=== PATIENT | male | born 1995 | race Two or more races ===

== ENCOUNTER 2022-11-08 23:41 | Inpatient (IN) | payer BC, SELFPAY ==
[2022-11-09] MEDS: haloperidol inj 5 mg/mL INJ 1 mL IM (00:07)
[2022-11-09 00:09] LABS: Basophils # 0.1 10^3/uL (0.0-0.1); Basophils % 0.6 %; Eosinophils % 0.2 %; Hematocrit 46.2 % (42.0-52.0); Hemoglobin 15.9 g/dL (11.7-16.6); Lymphocytes # 3.2 10^3/uL (0.8-4.8); Lymphocytes % 36.1 %; Mean Corpuscular HGB Conc 34.4 g/dL (30.0-36.0); Mean Corpuscular Hemoglobin 30.3 pg (28.0-34.0); Mean Platelet Volume 9.5 fL (7.4-10.4); Monocytes # 0.7 10^3/uL (0.2-0.9); Monocytes % 8.4 %; Neutrophils # 4.78 10^3/uL (1.8-7.7); Neutrophils % 54.4 %; Nucleated Red Blood Cells % 0 %; Platelet Count 265 10^3/cmm (130-400); Red Blood Count 5.25 10^6/uL (4.1-5.3); White Blood Count 8.8 10^3/uL (4.0-10.0)
[2022-11-09] MEDS: LORazepam 2 mg/mL INJ 1 mL IM (00:10)
[2022-11-09 00:12] LABS: Amphetamines Screen Urine Negative (Negative); Barbiturates Screen Urine Negative (Negative); Benzodiazepines Screen Urine Negative (Negative); Cocaine Screen Urine Negative (Negative); Opiate Screen Urine Negative (Negative); PCP Screen Urine Negative (Negative); THC Screen Urine Negative (Negative)
--- NOTE | 2022-11-09 00:19 | W.ED.PSYCHS ---
HPI - Psych General: Stated Complaint: SI Time Seen by Provider: 11/08/22 23:43 Source: patient Mode of arrival: ambulatory Limitations: no limitations History of Present Illness: 26-year-old male who states that he has lost everything recently has been under a lot of stress and just feeling worthless he has been having active suicidal thoughts he states he has a plan but he will not tell me. When he first got out of the room he is trying to show his finger in the electric sockets he states he went electrocute himself. He has been drinking alcohol tonight former drug user but states he is clean currently denies any worsening proving factors. Associated symptoms: Reports depression and suicidal ideation Review of Systems Const: Denies: fever(s), chills, body aches or change in appetite ENMT: Denies: throat pain or dental pain Card: Denies: chest pain Resp: Denies: dyspnea GI: Denies: abdominal pain, nausea, vomiting or diarrhea Musc: Denies: neck pain or back pain Skin/Breast: Denies: rash Neuro: Denies: headache(s) Psych: Reports: depression and suicidal ideation [facility] ED PFSH: Social History (Updated 11/09/22 @ 00:31 by Boubacar Resendiz MD) Alcohol intake: current Substance/Drug Use: former Physical Exam Const: COMMON NORMALS: no acute distress and patient oriented x3 HENMT: COMMON NORMALS: normocephalic and atraumatic HEAD & SCALP: normocephalic and atraumatic Eye: COMMON NORMALS: conjunctivae normal CONJUNCTIVA: Yes conjunctivae normal Neck/C-Spine: COMMON NORMALS: supple Chest: COMMONS NORMALS: normal inspection of the chest and normal palpation of entire chest wall Resp: COMMON NORMALS: normal respiratory effort, No retractions, No use of accessory muscles and clear to auscultation bilaterally AUSCULTATION: clear to auscultation bilaterally Cardio: COMMON NORMALS: regular rate, regular rhythm and No murmurs present (Cardio) RATE: regular rate RHYTHM: regular rhythm GI: COMMON NORMALS: Normal to inspection, nondistended, normoactive bowel sounds present, Soft to palpation, non-tender and no masses PALPATION: Yes Soft to palpation Extremity: COMMON NORMALS: normal to inspection and full ROM Neuro: COMMON NORMALS: patient oriented x3, moves all extremities and no focal motor deficits Psych: COMMON NORMALS: mental status grossly normal and cooperative THOUGHT CONTENT: Yes Suicidality present Skin: COMMON NORMALS: no rashes or lesions noted and no wounds GENERAL SKIN EXAM: no rashes or lesions noted MDM - Psych Medical Decision Making Patient presents for suicidal ideation he is medically cleared he is placed under a 96-hour hold I did speak to Dr. Hillman will admit. Medical Records I reviewed the patient's medical records. Lab Data I reviewed the patient's lab results. 11/09/22 00:04 11/09/22 00:04 Laboratory Results WBC 8.8 10^3/uL (4.0-10.0) 11/09/22 00:04 RBC 5.25 10^6/uL (4.1-5.3) 11/09/22 00:04 Hgb 15.9 g/dL (11.7-16.6) 11/09/22 00:04 Hct 46.2 % (42.0-52.0) 11/09/22 00:04 MCV 88.0 fl (80-94) 11/09/22 00:04 MCH 30.3 pg (28.0-34.0) 11/09/22 00:04 MCHC 34.4 g/dL (30.0-36.0) 11/09/22 00:04 RDW 12.0 % (12.1-15.1) L 11/09/22 00:04 Plt Count 265 10^3/cmm (130-400) 11/09/22 00:04 MPV 9.5 fL (7.4-10.4) 11/09/22 00:04 Neut % (Auto) 54.4 % 11/09/22 00:04 Lymph % (Auto) 36.1 % 11/09/22 00:04 [place] % (Auto) 8.4 % 11/09/22 00:04 Eos % (Auto) 0.2 % 11/09/22 00:04 Baso % (Auto) 0.6 % 11/09/22 00:04 Neut # (Auto) 4.78 10^3/uL (1.8-7.7) 11/09/22 00:04 Lymph # (Auto) 3.2 10^3/uL (0.8-4.8) 11/09/22 00:04 [place] # (Auto) 0.7 10^3/uL (0.2-0.9) 11/09/22 00:04 Eos # (Auto) 0.0 10^3/uL (0.0-0.8) 11/09/22 00:04 Baso # (Auto) 0.1 10^3/uL (0.0-0.1) 11/09/22 00:04 Nucleated RBC % (auto) 0 % 11/09/22 00:04 Nucleated RBCs # 0.0 /100WBC 11/09/22 00:04 Sodium 137 mmol/L (136-145) 11/09/22 00:04 Chloride 101 mmol/L (98-107) 11/09/22 00:04 BUN 8 mg/dL (6-20) 11/09/22 00:04 Glucose 88 mg/dL (65-115) 11/09/22 00:04 Calcium 9.2 mg/dL (8.5-10.5) 11/09/22 00:04 Total Bilirubin 0.9 mg/dL (0.15-1.2) 11/09/22 00:04 AST 26 U/L (0-40) 11/09/22 00:04 ALT 20 U/L (0-41) 11/09/22 00:04 Alkaline Phosphatase 72 U/L (40-130) 11/09/22 00:04 Total Protein 7.4 g/dL (6.6-8.7) 11/09/22 00:04 Albumin 4.9 g/dL (3.5-5.2) 11/09/22 00:04 Globulin 2.5 g/dL (1.3-4.6) 11/09/22 00:04 Urine Opiates Screen Negative ng/mL (Negative) 11/08/22 23:54 Ur Barbiturates Screen Negative ng/mL (Negative) 11/08/22 23:54 Ur Phencyclidine Scrn Negative ng/mL (Negative) 11/08/22 23:54 Ur Amphetamines Screen Negative ng/mL (Negative) 11/08/22 23:54 U Benzodiazepines Scrn Negative ng/mL (Negative) 11/08/22 23:54 Urine Cocaine Screen Negative ng/mL (Negative) 11/08/22 23:54 U Marijuana (THC) Screen Negative ng/mL (Negative) 11/08/22 23:54 Discharge Plan Discharge Admit Provider: Bj Hillman Condition: Stable Coding Level of Care Code ED Research And Evaluation Analyst for Radha Arora
[2022-11-09 00:28] LABS: Alanine Aminotransferase 20 U/L (0-41); Albumin Level 4.9 g/dL (3.5-5.2); Alcohol Level 213 mg/dL (0-10); Alkaline Phosphatase 72 U/L (40-130); Anion Gap 21.2 (5-19); Aspartate Amino Transferase 26 U/L (0-40); Blood Urea Nitrogen 8 mg/dL (6-20); Calcium 9.2 mg/dL (8.5-10.5); Carbon Dioxide 18 mmol/L (22-29); Chloride 101 mmol/L (98-107); Globulin 2.5 g/dL (1.3-4.6); Glomerular Filtration Rate 160.4 mL/min (90-130); Glucose 88 mg/dL (65-115); Osmolality Calculated 282 mOsm/kg (285-295); Potassium 3.2 mmol/L (3.5-5.1); Sodium 137 mmol/L (136-145); Total Bilirubin 0.9 mg/dL (0.15-1.2); Total Protein 7.4 g/dL (6.6-8.7)
[2022-11-09 00:34] LABS: Acetaminophen < 5.0 ug/mL (10-30); Salicylate < 0.3 mg/dL (3-10)
[2022-11-09 01:18] VITALS: BP 91/62; PULSE 73; RESP 14; O2SAT 95
--- NOTE | 2022-11-09 02:46 | PC.NURSE ---
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 Pt presents slumped over in w/c, and had to be physically transferred to the bed d/t receiving Haldol and Ativan in the ER, prior to being transferred to the NPU for care. Assessment to be completed when pt is awake enough to answer questions and hold himself upright. Pt is currently resting quielty in bed, respirations even and nonlabored.
[2022-11-09 05:57] VITALS: RESP 16
--- NOTE | 2022-11-09 08:10 | P.NPUHP_ITS ---
Providers/Chief Complaint Admitting Physician: Bj Hillman MD Chief Complaint: SI HPI NPU History of Present Illness Sal Rose is a 26 year old male who presented to the emergency department with the following report: Stated Complaint: SI Time Seen by Provider: 11/08/22 23:43 Source: patient Mode of arrival: ambulatory Limitations: no limitations History of Present Illness: 26-year-old male who states that he has lost everything recently has been under a lot of stress and just feeling worthless he has been having active suicidal thoughts he states he has a plan but he will not tell me. When he first got out of the room he is trying to show his finger in the electric sockets he states he went electrocute himself. He has been drinking alcohol tonight former drug user but states he is clean currently denies any worsening proving factors. Associated symptoms: Reports depression and suicidal ideation. He was admitted to the neuropsychiatric unit for definitive treatment of those issues. The patient presents today reporting that he has no previous psychiatric hospitalizations. He endorses some outpatient psychiatric services, and he reports earlier this month he had inpatient detox/substance abuse treatment. He reports some anti-anxiety medications. He reports that he was living with his girlfriend but was moving out, and his brother picked him up and they were going down the road and noticed a cooler that was all taped up, and they got out to move it off the road and noticed a stench and opened it and there was a body smell and bones, and his brother and girlfriend contacted the police. Afterwards, he got brought here because he was still really out of sorts. He is on a 96-hour hold, which extends to November 17, and he expressed concerns because he has a job that is starting Thursday. We discussed that he could be here for the 96 hours but could possibly be discharged earlier depending on how things go, but that he would at least be here for a day. He endorses that this situation was upsetting but there was also alcohol involved. He reports that he completed the thirty-day program he was in recently and it went well, and he had 55 days of sobriety. He reports that last night was the first time he drank again since treatment, after this incident, and it impacted him more because he felt upset about messing up his sobriety. The patient denies cigarette use or vaping. He reports that he started drinking alcohol too much around 14 to 16 years old. He reports that he was in the and had some periods of sobriety then. He endorses some cannabis use, at least once a week. He reports some experimentation with cocaine and methamphetamine the beginning of 2019. He denies other illicit drug use. He reports two drug rehabilitation programs, this recent one and one in 2017. He endorses one DUI, before he went into treatment recently. He denies any other drug related charges. He reports that growing up his mother had mental health issues and he had to figure things out for himself, and it was challenging. He reports some sleep issues. He reports some suicidal thoughts and passive wish. He denies self-injurious behavior. He endorses that he has had some anxiety, with sweaty palms and shortness of breath, and worrying. He endorses paranoia. He denies auditory or visual hallucinations. He reports some nightmares and flashbacks from seeing people that have committed suicide. PSYCHIATRIC HISTORY: As above. SUBSTANCE ABUSE HISTORY: As above. FAMILY HISTORY: The patient reports mental health issues on his mother?s side of the family. He reports addiction issues on both sides of the family. He endorses a suicide completion of a cousin on his mother?s side. DEVELOPMENTAL HISTORY: The patient reports that his mother said he was born not crying. He learned to walk and talk and met developmental milestones on time. The patient endorses speech therapy and learning support. PSYCHOSOCIAL HISTORY: The patient reports that his mother and father were together when he was born and split up later. He reports that he has two younger brothers from that union. He denies any other siblings. He describes his childhood as good at first and then he had to grow up fast. He denies emotional, physical, or sexual abuse, but there was neglect. He endorses some CYS involvement. 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 He endorses graduating from high school. He denies additional training. He endorses being heterosexual, with the longest relationship being his current relationship of about two years. He denies being and has no children. 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 The longest job he had was in the . 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 He currently lives at his mother?s apartment. LEGAL HISTORY: He had one night in correction. MEDICAL HISTORY: He reports having high blood pressure. Meds NPU Allergies Allergy/AdvReac Type Severity Reaction Status Date / Time No Known Allergies Allergy Verified 11/09/22 09:21 PFSH NPU PFSH: Social History (Updated 11/09/22 @ 00:31 by Boubacar Resendiz MD) Alcohol intake: current Substance/Drug Use: former Mental Status Exam MSE Comments: This is a slender dark skined male, in hospital scrubs, with adequate grooming and eye contact. No abnormal movements mild psychomotor retardation. Cooperative with exam in mild distress. Speech was normal rate and slightly decreased volume. Mood described as very calm now; affect congruent. Thought process, organized. Thought content: patient denied any suicidal or homicidal ideation, there were no delusions reported or noted, patient denied any auditory or visual hallucinations. Attention, concentration, and memory appeared intact, but none were formally tested. Alert and oriented times three. Insight and judgment are fair. Impulse control is limited. Vitals/I&O/Wt Last Vital Signs Pulse 73 11/09/22 01:18 Resp 16 11/09/22 05:57 BP 91/62 11/09/22 01:18 Pulse Ox 95 11/09/22 01:18 O2 Del Method Room Air 11/09/22 01:18 Data NPU 11/09/22 00:04 11/09/22 00:04 A&P Assessment and plan (1) Alcohol use disorder, severe, dependence: (2) Partner relational problem: (3) History of trauma: (4) Depression: Plan This is a 26-year-old dark skinned male, who presents on a 96-hour hold, after a recent rehabilitation program and period of sobriety, having had a relapse secondary to the stress of moving and an upsetting incident, with genetic loading for mental health and addiction issues, and a history of instability at home. 1. Continue current medication. 2. Encourage individual, group, and milieu therapy. 3. Continue q-15-minute checks for safety. 4. Get some collateral information. Involuntary Hold Information 96 Hour Hold: 96 Hour Involuntary Admission: Yes 96 Hour Hold Ending Date: 11/17/22 96 Hour Hold Ending Time: 23:46 Attestations NPU Medical Necessity Statement*: Inpatient hospitalization is medically necessary and the clinically appropriate intervention, at this time. We will monitor medications and make changes as indicated. Patient will be in the hospital for over two midnights. Likely length of stay is three to five days. Coding Level of Care Code Acute Code for Chg Fwd Diagnoses Alcohol use disorder, severe, dependence F10.20 Partner relational problem Z63.0 History of trauma Z87.828 Depression F32.A
[2022-11-09 14:00] VITALS: BP 103/65; PULSE 101; RESP 20; TEMP 36.8; O2SAT 98
[2022-11-09 20:13] VITALS: BP 104/66; PULSE 70; RESP 18; TEMP 36.6; O2SAT 98
[2022-11-10] MEDS: folic acid 1 mg Tablet PO (08:37)
[2022-11-10] MEDS: thiamine 100 mg Tablet PO (08:37)
[2022-11-10] MEDS: multivitamin therapeutic Tablet 1 TAB PO (08:37)
[2022-11-10 14:00] VITALS: BP 104/63; PULSE 108; RESP 16; TEMP 36.7; O2SAT 98
--- NOTE | 2022-11-10 15:08 | PC.NURSE ---
Patient came to desk and stated his mother has been sitting outside waiting for 3-4 hrs to take him home. He stated we were holding him against his will and that we are not letting him work. Sat down with patient and he said his mother told him there was something in the water. He asked if we were doing experiments on him. Patients eyes were darting around the room, appeared hypervigilant and paranoid. Patient was again informed he would not be discharged today.
[2022-11-10] MEDS: paliperidone ER 6 mg Tablet PO (15:45)
--- NOTE | 2022-11-10 16:51 | P.NPUPN_ITS ---
Subjective NPU Subjective: Patient presented today reporting that things are going okay. He reports he is having some paranoia which is something he has experienced before. His mother was present and supportive saying that he had benefited from medication in the past which he agreed. However she did not attribute some of his feelings to intuition/supernatural sources that she also has. We discussed the risks, francis efits and alternatives of initiating Invega 6 mg p.o. daily and he understood and agreed to proceed as is documented in this note. Mental Status Exam MSE Comments: This is a slender dark skinned male, in hospital scrubs, with adequate grooming and eye contact. No abnormal movements except for mild psychomotor retardation. Cooperative with exam in mild distress. Speech was normal rate and slightly dec reased volume. Mood described as paranoid and anxious; affect congruent. Thought process, organized. Thought content: patient denied any suicidal or homicidal ideation, there was paranoia reported and some guardedness noted, patient denied any auditory or visual hallucinations. Attention, concentration, and memory appeared intact, but none were formally tested. Alert and oriented times three. Insight and judgment are fair. Impulse control is limited. Vitals/I&O/Wt Last Vital Signs Temp 98.4 F 11/10/22 20:34 Pulse 97 11/10/22 20:34 Resp 18 11/10/22 20:34 BP 118/74 11/10/22 20:34 Pulse Ox 95 11/10/22 20:34 O2 Del Method Room Air 11/10/22 20:34 Weight last 48 hrs Weight 57.243 kg Data NPU 11/09/22 00:04 11/09/22 00:04 A&P Assessment and plan (1) Alcohol use disorder, severe, dependence: (2) Partner relational problem: (3) History of trauma: (4) Depression: Plan This is a 26-year-old dark skinned male, who presents on a 96-hour hold, after a recent rehabilitation program and period of sobriety, having had a relapse secondary to the stress of moving and an upsetting incident, with genetic loading for mental health and addiction issues, and a history of instability at home. 1. Continue current medication. Start Invega 6 mg p.o. daily to target paranoia previously successfully treated with Invega. 2. Encourage individual, group, and milieu therapy. 3. Continue q-15-minute checks for safety. 4. Encourage sober living treatment after discharge at the highest level of care to which he willing to commit. Involuntary Hold Information 96 Hour Hold: 96 Hour Involuntary Admission: Yes 96 Hour Hold Ending Date: 11/17/22 96 Hour Hold Ending Time: 23:46 Attestations NPU Medical Necessity Statement*: Inpatient hospitalization is medically necessary and the clinically appropriate intervention, at this time. We will monitor medications and make changes as indicated. Likely length of stay is 2-4 days. Coding Level of Care Code Acute Code for g Fwd Diagnoses Alcohol use disorder, severe, dependence F10.20 Partner relational problem Z63.0 History of trauma Z87.828 Depression F32.A
[2022-11-10 20:34] VITALS: BP 118/74; PULSE 97; RESP 18; TEMP 36.9; O2SAT 95
[2022-11-11] MEDS: paliperidone ER 6 mg Tablet PO (08:14)
[2022-11-11] MEDS: multivitamin therapeutic Tablet 1 TAB PO (08:14)
[2022-11-11] MEDS: folic acid 1 mg Tablet PO (08:14)
[2022-11-11] MEDS: thiamine 100 mg Tablet PO (08:14)
--- NOTE | 2022-11-11 11:34 | W.PM.NPUPNS ---
Subjective NPU Subjective: Patient is in today reporting that he is feeling okay with the Invega being started. He denies any significant side effects to the medication. He reported that he is having stress about the discovery of the body and the conflict with his girlfriend. We discussed being delivered and making sure he has a safe place to discharge as well as appointments and not chou back to get into that conflict. Otherwise he reports feeling happy with coming to the hospital and is hopeful that things get better. Mental Status Exam MSE Comments: This is a slender dark skinned male, in hospital scrubs, with adequate grooming and eye contact. No abnormal movements except for mild psychomotor retardation. Cooperative with exam in mild distress. Speech was normal rate and slightly decreased volume. Mood described as a little less paranoid and anxious; affect congruent. Thought process, organized. Thought content: patient denied any suicidal or homicidal ideation, there was paranoia reported and some guardedness noted, patient denied any auditory or visual hallucinations. Attention, concentration, and memory appeared intact, but none were formally tested. Alert and oriented times three. Insight and judgment are fair. Impulse control is limited. Vitals/I&O/Wt Last Vital Signs Temp 98.4 F 11/10/22 20:34 Pulse 97 11/10/22 20:34 Resp 18 11/10/22 20:34 BP 118/74 11/10/22 20:34 Pulse Ox 95 11/10/22 20:34 O2 Del Method Room Air 11/10/22 20:34 Weight last 48 hrs Weight 57.243 kg Data NPU 11/09/22 00:04 11/09/22 00:04 A&P Assessment and plan (1) Alcohol use disorder, severe, dependence: (2) Partner relational problem: (3) History of trauma: (4) Depression: Plan This is a 26-year-old dark skinned male, who presents on a 96-hour hold, after a recent rehabilitation program and period of sobriety, having had a relapse secondary to the stress of moving and an upsetting incident, with genetic loading for mental health and addiction issues, and a history of instability at home. 1. Continue current medication. Started Invega 6 mg p.o. daily to target paranoia previously successfully treated with Invega. 2. Encourage individual, group, and milieu therapy. 3. Continue q-15-minute checks for safety. 4. Encourage sober living treatment after discharge at the highest level of care to which he willing to commit. Involuntary Hold Information 96 Hour Hold: 96 Hour Involuntary Admission: Yes 96 Hour Hold Ending Date: 11/17/22 96 Hour Hold Ending Time: 23:46 Attestations NPU Medical Necessity Statement*: Inpatient hospitalization is medically necessary and the clinically appropriate intervention, at this time. We will monitor medications and make changes as indicated. Likely length of stay is 2-4 days. Coding Level of Care Code Acute Code for g Fwd Diagnoses Alcohol use disorder, severe, dependence F10.20 Partner relational problem Z63.0 History of trauma Z87.828 Depression F32.A
[2022-11-11 14:00] VITALS: BP 96/73; PULSE 119; RESP 12; TEMP 36.6; O2SAT 96
[2022-11-11 22:00] VITALS: BP 103/71; PULSE 81; RESP 18; TEMP 36.7; O2SAT 97
[2022-11-12 06:00] VITALS: BP 108/76; PULSE 86; RESP 18; TEMP 36.3; O2SAT 96
[2022-11-12] MEDS: folic acid 1 mg Tablet PO (09:21)
[2022-11-12] MEDS: multivitamin therapeutic Tablet 1 TAB PO (09:21)
[2022-11-12] MEDS: thiamine 100 mg Tablet PO (09:21)
[2022-11-12] MEDS: paliperidone ER 6 mg Tablet PO (09:21)
[2022-11-12 14:00] VITALS: BP 133/69; PULSE 107; RESP 16; TEMP 36.6; O2SAT 95
--- NOTE | 2022-11-12 18:17 | P.NPUPN_ITS ---
Subjective NPU Subjective: Patient presented today reporting that things have really started to improve. He reports that he is making better decisions and is really glad that he stopped drinking and is feeling committed to not drinking any more. He reports that his thoughts are clearer now and he plans to stay with his mother and his renegotiations with his girlfriend can begin from there. He reported medication has been very helpful and we discussed the plan for discharge in the morning. Mental Status Exam MSE Comments: This is a slender dark skinned male, in hospital scrubs, with adequate grooming and eye contact. No abnormal movements except for mild psychomotor retardation. Cooperative with exam in mild distress. Speech was normal rate and slightly decreased volume. Mood described as a little better; affect congruent. Thought process, organized. Thought content: patient denied any suicidal or homicidal ideation, there was no paranoia reported or noted, patient denied any auditory or visual hallucinations. Attention, concentration, and memory appeared intact, but none were formally tested. Alert and oriented times three. Insight and judgment are fair. Impulse control is limited. Vitals/I&O/Wt Last Vital Signs Temp 97.8 F 11/12/22 14:00 Pulse 107 H 11/12/22 14:00 Resp 16 11/12/22 14:00 BP 133/69 11/12/22 14:00 Pulse Ox 95 11/12/22 14:00 O2 Del Method Room Air 11/12/22 14:00 Data NPU 11/09/22 00:04 11/09/22 00:04 A&P Assessment and plan (1) Alcohol use disorder, severe, dependence: (2) Partner relational problem: (3) History of trauma: (4) Depression: Plan This is a 26-year-old dark skinned male, who presents on a 96-hour hold, after a recent rehabilitation program and period of sobriety, having had a relapse secondary to the stress of moving and an upsetting incident, with genetic loading for mental health and addiction issues, and a history of instability at home. 1. Continue current medication. Started Invega 6 mg p.o. daily to target paranoia previously successfully treated with Invega. 2. Encourage individual, group, and milieu therapy. 3. Continue q-15-minute checks for safety. 4. Encourage sober living treatment after discharge at the highest level of care to which he willing to commit. 5. Tentative plan for discharge tomorrow. Involuntary Hold Information 96 Hour Hold: 96 Hour Involuntary Admission: Yes 96 Hour Hold Ending Date: 11/17/22 96 Hour Hold Ending Time: 23:46 Attestations NPU Medical Necessity Statement*: Inpatient hospitalization is medically necessary and the clinically appropriate intervention, at this time. We will monitor medications and make changes as indicated. Likely length of stay is 1-3 days. Coding Level of Care Code Acute Code for [facility] Fwd Diagnoses Alcohol use disorder, severe, dependence F10.20 Partner relational problem Z63.0 History of trauma Z87.828 Depression F32.A
[2022-11-12 21:38] VITALS: BP 112/73; PULSE 104; RESP 18; TEMP 36.3; O2SAT 97
[2022-11-13 06:00] VITALS: BP 105/71; PULSE 105; RESP 16; TEMP 36.6; O2SAT 97
[2022-11-13] MEDS: multivitamin therapeutic Tablet 1 TAB PO (08:45)
[2022-11-13] MEDS: folic acid 1 mg Tablet PO (08:45)
[2022-11-13] MEDS: thiamine 100 mg Tablet PO (08:45)
[2022-11-13] MEDS: paliperidone ER 6 mg Tablet PO (08:45)
--- NOTE | 2022-11-13 09:59 | W.PM.NPUDCS ---
Diagnoses at Discharge Discharge Diagnosis (1) Alcohol use disorder, severe, dependence: Status: Acute (2) Partner relational problem: Status: Acute (3) History of trauma: Status: Acute (4) Depression: Status: Acute Reason for Visit Reason for Visit: SI Brief History: History of Present Illness Sal Rose is a 26 year old male who presented to the emergency department with the following report: Stated Complaint: SI Time Seen by Provider: 11/08/22 23:43 Source: patient Mode of arrival: ambulatory Limitations: no limitations History of Present Illness:?? 26-year-old male who states that he has lost everything recently has been under a lot of stress and just feeling worthless he has been having active suicidal thoughts he states he has a plan but he will not tell me.? When he first got out of the room he is trying to show his finger in the electric sockets he states he went electrocute himself.? He has been drinking alcohol tonight former drug user but states he is clean currently denies any worsening proving factors. ? Associated symptoms: Reports depression and suicidal ideation. He was admitted to the neuropsychiatric unit for definitive treatment of those issues.? The patient presents today reporting that he has no previous psychiatric hospitalizations. He endorses some outpatient psychiatric services, and he reports earlier this month he had inpatient detox/substance abuse treatment. He reports some anti-anxiety medications. He reports that he was living with his girlfriend but was moving out, and his brother picked him up and they were going down the road and noticed a cooler that was all taped up, and they got out to move it off the road and noticed a stench and opened it and there was a body smell and bones, and his brother and girlfriend contacted the police. Afterwards, he got brought here because he was still really out of sorts. He is on a 96-hour hold, which extends to November 17, and he expressed concerns because he has a job that is starting Thursday. We discussed that he could be here for the 96 hours but could possibly be discharged earlier depending on how things go, but that he would at least be here for a day. He endorses that this situation was upsetting but there was also alcohol involved. He reports that he completed the thirty-day program he was in recently and it went well, and he had 55 days of sobriety. He reports that last night was the first time he drank again since treatment, after this incident, and it impacted him more because he felt upset about messing up his sobriety. The patient denies cigarette use or vaping. He reports that he started drinking alcohol too much around 14 to 16 years old. He reports that he was in the and had some periods of sobriety then. He endorses some cannabis use, at least once a week. He reports some experimentation with cocaine and methamphetamine the beginning of 2019. He denies other illicit drug use. He reports two drug rehabilitation programs, this recent one and one in 2017. He endorses one DUI, before he went into treatment recently. He denies any other drug related charges. He reports that growing up his mother had mental health issues and he had to figure things out for himself, and it was challenging. He reports some sleep issues. He reports some suicidal thoughts and passive wish. He denies self-injurious behavior. He endorses that he has had some anxiety, with sweaty palms and shortness of breath, and worrying. He endorses paranoia. He denies auditory or visual hallucinations. He reports some nightmares and flashbacks from seeing people that have committed suicide. PSYCHIATRIC HISTORY: As above. SUBSTANCE ABUSE HISTORY: As above.? FAMILY HISTORY: The patient reports mental health issues on his mother?s side of the family. He reports addiction issues on both sides of the family. He endorses a suicide completion of a cousin on his mother?s side. DEVELOPMENTAL HISTORY: The patient reports that his mother said he was born not crying.? He learned to walk and talk and met developmental milestones on time. The patient endorses speech therapy and learning support. PSYCHOSOCIAL HISTORY: The patient reports that his mother and father were together when he was born and split up later. He reports that he has two younger brothers from that union. He denies any other siblings. He describes his childhood as good at first and then he had to grow up fast. He denies emotional, physical, or sexual abuse, but there was neglect. He endorses some CYS involvement. 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 He endorses graduating from high school. He denies additional training. He endorses being heterosexual, with the longest relationship being his current relationship of about two years. He denies being and has no children. He was in the from 2013 to 2018, he was in [employer] and range [employer]. The longest job he had was in the . He endorses being Rastafarian. He currently lives at his mother?s apartment. LEGAL HISTORY: He had one night in detention. MEDICAL HISTORY: He reports having high blood pressure. Hospital Course Hospital Course Patient slowly acclimated to the individual, group and milieu therapies provided.? He presented with psychosocial stressors of significant partner relational problems, not being on his medications, not being sure where he was going to live and having relapsed on alcohol. Eventually his withdrawal resolved. We added thiamine to his regimen. We restarted Invega to treat his baseline paranoia. Ultimately he arrived on a 96-hour hold. We monitored him for safety and ensure there was no lingering suicidality. He improved significantly once he was sober and had several days on medications. He worked with the social work team to come up with appropriate follow-up and discharge appointments and his mother was involved with his care as a support. He was able to contract for safety outside of the hospital prior to discharge.? During the hospitalization, he had routine laboratory studies which were within normal limits except for a few outliers.? Additionally he had general medical evaluation which was also within normal limits and revealed no new acute processes. At the time of discharge, he denied any lethality and he was absent psychosis.? Mood and anxiety were well managed and he endorsed a plan to avoid all drugs of abuse, and follow-up with the recommended post hospital services.? He was evaluated and deemed to be absent credible lethality and had received the maximum benefit from an inpatient hospitalization, so was discharged. Involuntary Hold Information 96 Hour Hold: 96 Hour Involuntary Admission: Yes 96 Hour Hold Ending Date: 11/17/22 96 Hour Hold Ending Time: 23:46 Mental Status Exam MSE Comments: This is a slender dark skinned/ male, in hospital scrubs, with adequate grooming and eye contact. No abnormal movements except for mild psychomotor retardation. Cooperative with exam in mild distress. Speech was normal rate and slightly decreased volume. Mood described as a little better; affect congruent. Thought process, organized. Thought content: patient denied any suicidal or homicidal ideation, there was no paranoia reported or noted, patient denied any auditory or visual hallucinations. Attention, concentration, and memory appeared intact, but none were formally tested. Alert and oriented times three. Insight and judgment are fair. Impulse control is limited. Discharge Data Studies Completed and Pending: Laboratory Results WBC 8.8 10^3/uL (4.0- 10.0) 11/09/22 00:04 RBC 5.25 10^6/uL (4.1 -5.3) 11/09/22 00:04 Hgb 15.9 g/dL (11.7-1 6.6) 11/09/22 00:04 Hct 46.2 % (42.0-52.0 ) 11/09/22 00:04 MCV 88.0 fl (80-94) 11/09/22 00:04 MCH 30.3 pg (28.0-34. 0) 11/09/22 00:04 MCHC 34.4 g/dL (30.0-3 6.0) 11/09/22 00:04 RDW 12.0 % (12.1-15.1 ) L 11/09/22 00:04 Plt Count 265 10^3/cmm (130 -400) 11/09/22 00:04 MPV 9.5 fL (7.4-10.4) 11/09/22 00:04 Neut % (Auto) 54.4 % 11/09/22 00:04 Lymph % (Auto) 36.1 % 11/09/22 00:04 [place] % (Auto) 8.4 % 11/09/22 00:04 Eos % (Auto) 0.2 % 11/09/22 00:04 Baso % (Auto) 0.6 % 11/09/22 00:04 Neut # (Auto) 4.78 10^3/uL (1.8 -7.7) 11/09/22 00:04 Lymph # (Auto) 3.2 10^3/uL (0.8- 4.8) 11/09/22 00:04 [place] # (Auto) 0.7 10^3/uL (0.2- 0.9) 11/09/22 00:04 Eos # (Auto) 0.0 10^3/uL (0.0- 0.8) 11/09/22 00:04 Baso # (Auto) 0.1 10^3/uL (0.0- 0.1) 11/09/22 00:04 Nucleated RBC % (a uto) 0 % 11/09/22 00:04 Nucleated RBCs # 0.0 /100WBC 11/09/22 00:04 Sodium 137 mmol/L (136-1 45) 11/09/22 00:04 Potassium 3.2 mmol/L (3.5-5 .1) L 11/09/22 00:04 Chloride 101 mmol/L (98-10 7) 11/09/22 00:04 Carbon Dioxide 18 mmol/L (22-29) L 11/09/22 00:04 Anion Gap 21.2 (5-19) H 11/09/22 00:04 BUN 8 mg/dL (6-20) 11/09/22 00:04 Creatinine 0.6 mg/dL (0.7-1. 2) L 11/09/22 00:04 GFR Calculation 160.4 mL/min (90- 130) H 11/09/22 00:04 Glucose 88 mg/dL (65-115) 11/09/22 00:04 Calculated Osmolal ity 282 mOsm/kg (285- 295) L 11/09/22 00:04 Calcium 9.2 mg/dL (8.5-10 .5) 11/09/22 00:04 Total Bilirubin 0.9 mg/dL (0.15-1 .2) 11/09/22 00:04 AST 26 U/L (0-40) 11/09/22 00:04 ALT 20 U/L (0-41) 11/09/22 00:04 Alkaline Phosphata se 72 U/L (40-130) 11/09/22 00:04 Total Protein 7.4 g/dL (6.6-8.7 ) 11/09/22 00:04 Albumin 4.9 g/dL (3.5-5.2 ) 11/09/22 00:04 Globulin 2.5 g/dL (1.3-4.6 ) 11/09/22 00:04 Salicylates < 0.3 mg/dL (3-10 ) L 11/09/22 00:04 Urine Opiates Scre en Negative ng/mL (N egative) 11/08/22 23:54 Acetaminophen < 5.0 ug/mL (10-3 0) L 11/09/22 00:04 Ur Barbiturates Sc reen Negative ng/mL (N egative) 11/08/22 23:54 Ur Phencyclidine S crn Negative ng/mL (N egative) 11/08/22 23:54 Ur Amphetamines Sc reen Negative ng/mL (N egative) 11/08/22 23:54 U Benzodiazepines Scrn Negative ng/mL (N egative) 11/08/22 23:54 Urine Cocaine Scre en Negative ng/mL (N egative) 11/08/22 23:54 U Marijuana (THC) Screen Negative ng/mL (N egative) 11/08/22 23:54 Ethyl Alcohol 213 mg/dL (0-10) H 11/09/22 00:04 Vitals: Last Vital Signs Temp 97.8 F 11/13/22 06:00 Pulse 105 H 11/13/22 06:00 Resp 16 11/13/22 06:00 BP 105/71 11/13/22 06:00 Pulse Ox 97 11/13/22 06:00 O2 Del Method Room Air 11/13/22 06:00 Discharge Plan Discharge Patient Disposition: Home Condition: Stable Prescriptions: New paliperidone 6 mg Tablet Extended Release 24 Hr 6 mg PO DAILY 30 Days Qty: 30 1RF Vitamin B-1 (mononitrate) 100 mg Tablet 100 mg PO DAILY 30 Days Qty: 30 1RF Discharge Orders: Discharge Order (Routine); Ordered 11/13/22 Ordered By: Bj Hillman Referrals: [facility] [Outside] - 11/17/22 8:45 am (Initial assessment with Veronica Porter) Isidro Kendrick MD [Family Provider] - Discharge Diet: Regular Discharge Activity: Resume usual activity Patient Instructions: Depression, Paliperidone (By mouth) (Invega), Psychotic Disorder (GEN), Opioid Safety Discharge Attestations NPU Time Spent in Discharge Care*: less than 30 min Specific Discharge Activities: Specific discharge activities: educating patient, discussing with casework supervisor/social workers/dc planners, documenting/other paperwork and evaluating patient/reviewing data Coding Level of Care Code Acute Chg FW DC note Diagnoses Alcohol use disorder, severe, dependence F10.20 Partner relational problem Z63.0 History of trauma Z87.828 Depression F32.A
[2022-11-13 10:54] VITALS: BP 105/71; PULSE 105; RESP 16; TEMP 36.6; O2SAT 97
== END 2022-11-13 12:02 | disposition home or self-care (01) | DRG 881 ==
LOC: ER 11-09 00:19 → NP 11-09 00:24
PROVIDERS: Admitting Provider Psychiatry & Neurology Psychiatry; Emergency Provider Emergency Medicine; Family Provider Family Medicine; Visit Provider Psychiatry & Neurology Psychiatry
DX: F32.A Depression, unspecified (principal); R45.851 Suicidal ideations; F10.229 Alcohol dependence with intoxication, unspecified; Y90.7 Blood alcohol level of 200-239 mg/100 ml; F12.90 Cannabis use, unspecified, uncomplicated; Z81.8 Family history of other mental and behavioral disorders; Z63.0 Problems in relationship with spouse or partner
CPT/HCPCS: 80053; 80306; 80307; 85025; 96372; 97150; 97165; 99238; 99285; J1630; J2060

== ENCOUNTER 2023-03-27 12:24 | Emergency (ER) | payer BC, MEDICAID, SELFPAY ==
[2023-03-27 12:36] VITALS: BP 124/96; RESP 18; O2SAT 99
[2023-03-27] MEDS: metoclopramide 5 mg/mL SDV 2 mL 10 MG IVP (13:02)
[2023-03-27] MEDS: LORazepam 2 mg/mL INJ 1 mL 1 MG IVP (13:02)
[2023-03-27] MEDS: sodium chloride 0.9% 1,000 ML 999 ML IV (13:03)
--- NOTE | 2023-03-27 13:03 | PC.PHAR ---
pt states he takes care of his own medications-pt states he is out patient with [facility]-pt states the medications entered are the only medications he is taking
[2023-03-27 13:04] LABS: Basophils % 0.2 %; Hematocrit 46.6 % (37-53); Lymphocytes # 0.6 10^3/uL (0.8-4.8); Lymphocytes % 6.9 %; Mean Corpuscular HGB Conc 34.5 g/dL (30-55); Mean Corpuscular Hemoglobin 31.3 pg (27-33); Mean Corpuscular Volume 90.5 fl (82-101); Mean Platelet Volume 9.7 fL (7.4-10.4); Monocytes # 0.2 10^3/uL (0.2-0.9); Monocytes % 2.5 %; Neutrophils # 7.54 10^3/uL (1.8-7.7); Neutrophils % 90.3 %; Nucleated Red Blood Cells % 0 %; Platelet Count 255 10^3/cmm (157-399); Red Blood Count 5.15 10^6/uL (3.85-5.65); Red Cell Distribution Width 12.7 % (12.1-15.1); White Blood Count 8.36 10^3/uL (3.29-11.43)
[2023-03-27 13:21] LABS: Alanine Aminotransferase 11 U/L (0-41); Albumin Level 4.4 g/dL (3.5-5.2); Alkaline Phosphatase 74 U/L (40-130); Anion Gap 23.6 (5-19); Aspartate Amino Transferase 15 U/L (0-40); Blood Urea Nitrogen 15 mg/dL (6-20); Calcium 8.6 mg/dL (8.5-10.5); Carbon Dioxide 16 mmol/L (22-29); Chloride 102 mmol/L (98-107); Globulin 2.5 g/dL (1.3-4.6); Glomerular Filtration Rate 159.3 mL/min (90-130); Glucose 94 mg/dL (65-115); Osmolality Calculated 285 mOsm/kg (285-295); Potassium 4.6 mmol/L (3.5-5.1); Sodium 137 mmol/L (136-145); Total Bilirubin 0.4 mg/dL (0.15-1.2); Total Protein 6.9 g/dL (6.6-8.7)
[2023-03-27 13:45] VITALS: BP 102/56; PULSE 81; RESP 16; O2SAT 98
--- NOTE | 2023-03-27 14:06 | ED_ITS ---
HPI - Nausea/Vomiting/Diarrhea General: Chief complaint: Nausea/Vomiting/Diarrhea Stated complaint: N/V Time Seen by Provider: 03/27/23 12:28 History of Present Illness: 27-year-old male with history of alcohol and opiate abuse presents emergency room with nausea, vomiting that started yesterday. Patient reveals multiple episode of vomiting but denies any diarrhea, fever, chills, abdominal pain, chest pain, shortness of breath or chills. Patient reveals that his last alcohol or drug abuse was many weeks ago and no recent abuse. Patient denies any known sick contact or recent foreign travel. Associated nausea: Yes Associated symtoms: Reports nausea; Denies bloating Review of Systems General: Reports: 10 or more systems reviewed and unremarkable except in HPI and below Const: Denies: fever(s), chills, body aches or change in appetite GI: Reports: nausea and vomiting; Denies: abdominal pain, hematemesis, coffee ground emesis, dysphagia, heartburn, early satiety, diarrhea, constipation, bloating, GI cramping or belching Psych: Denies: irritability, paranoia, memory loss, difficulty concentrating, visual hallucinations, auditory hallucinations, tactile hallucinations, suicidal ideation or homicidal ideation PFSH ED PFSH: Family History (Updated 11/20/22 @ 14:35 by Scott Hirsch) Other Psychiatric care Social History (Updated 11/09/22 @ 00:31 by Boubacar Resendiz MD) Alcohol intake: current Substance/Drug Use: former Physical Exam Const: COMMON NORMALS: no acute distress, average body habitus, patient oriented x3, no limitations, healthy appearing, alert and well nourished Neck/C-Spine: COMMON NORMALS: full ROM, no lymphadenopathy, supple, no meningeal signs, no JVD, Thyroid normal and No carotid bruits THYROID: Thyroid normal Chest: COMMONS NORMALS: normal inspection of the chest, normal palpation of entire chest wall, normal inspection of the breasts and normal palpation of the breasts Breast/axilla inspection: Yes normal inspection of the breasts BREAST/AXILLA PALPATION: Yes normal palpation of the breasts Resp: COMMON NORMALS: normal respiratory effort, No retractions, No use of accessory muscles, clear to auscultation bilaterally and percussion normal AUSCULTATION: clear to auscultation bilaterally PERCUSSION: percussion normal Cardio: COMMON NORMALS: no JVD GI: COMMON NORMALS: Normal to inspection, nondistended, normoactive bowel sounds present, Soft to palpation, non-tender, No hepatosplenomegaly present, no masses and no bruits PALPATION: Yes Soft to palpation and Yes No hepatosplenomegaly present Extremity: COMMON NORMALS: normal to inspection, full ROM, capillary refill normal, no joint enlargement, no clubbing, cyanosis or edema, no calf tenderness and no pedal edema Neuro: COMMON NORMALS: patient oriented x3 SENSORIUM/ORIENTATION: Yes alert MENINGEAL SIGNS: Yes no meningeal signs Course Vital Signs: Vital signs: Vital Signs Pulse Rate 81 03/27/23 13:45 Respiratory Rate 16 03/27/23 13:45 Blood Pressure 102/56 03/27/23 13:45 Pulse Oximetry 98 03/27/23 13:45 Oxygen Delivery Me thod Room Air 03/27/23 12:36 MDM - Nausea/Vomiting/Diarrhea Medical Decision Making Patient made comfortable emergency room. Patient had extensive work-up including CBC, CMP patient was given IV fluid and IV antinausea medication. Patient was resting comfortably without any acute distress while in the emergency room for few hours. Differential Diagnosis Likely traveler's diarrhea, food poisoning, gastroenteritis, clostridium difficile infection, drug-induced nausea and vomiting and dehydration Lab Data 03/27/23 12:59 03/27/23 12:59 Laboratory Results WBC 8.36 10^3/uL (3.29-11.43) 03/27/23 12:59 RBC 5.15 10^6/uL (3.85-5.65) 03/27/23 12:59 Hgb 16.10 g/dL (11.27-16.99) 03/27/23 12:59 Hct 46.6 % (37-53) 03/27/23 12:59 MCV 90.5 fl (82-101) 03/27/23 12:59 MCH 31.3 pg (27-33) 03/27/23 12:59 MCHC 34.5 g/dL (30-55) 03/27/23 12:59 RDW 12.7 % (12.1-15.1) 03/27/23 12:59 Plt Count 255 10^3/cmm (157-399) 03/27/23 12:59 MPV 9.7 fL (7.4-10.4) 03/27/23 12:59 Neut % (Auto) 90.3 % 03/27/23 12:59 Lymph % (Auto) 6.9 % 03/27/23 12:59 [place] % (Auto) 2.5 % 03/27/23 12:59 Eos % (Auto) 0.0 % 03/27/23 12:59 Baso % (Auto) 0.2 % 03/27/23 12:59 Neut # (Auto) 7.54 10^3/uL (1.8-7.7) 03/27/23 12:59 Lymph # (Auto) 0.6 10^3/uL (0.8-4.8) L 03/27/23 12:59 [place] # (Auto) 0.2 10^3/uL (0.2-0.9) 03/27/23 12:59 Eos # (Auto) 0.0 10^3/uL (0.0-0.8) 03/27/23 12:59 Baso # (Auto) 0.0 10^3/uL (0.0-0.1) 03/27/23 12:59 Nucleated RBC % (auto) 0 % 03/27/23 12:59 Nucleated RBCs # 0.0 /100WBC 03/27/23 12:59 Sodium 137 mmol/L (136-145) 03/27/23 12:59 Potassium 4.6 mmol/L (3.5-5.1) 03/27/23 12:59 Chloride 102 mmol/L (98-107) 03/27/23 12:59 Carbon Dioxide 16 mmol/L (22-29) L 03/27/23 12:59 Anion Gap 23.6 (5-19) H 03/27/23 12:59 BUN 15 mg/dL (6-20) 03/27/23 12:59 Creatinine 0.6 mg/dL (0.7-1.2) L 03/27/23 12:59 GFR Calculation 159.3 mL/min (90-130) H 03/27/23 12:59 Glucose 94 mg/dL (65-115) 03/27/23 12:59 Calculated Osmolality 285 mOsm/kg (285-295) 03/27/23 12:59 Calcium 8.6 mg/dL (8.5-10.5) 03/27/23 12:59 Total Bilirubin 0.4 mg/dL (0.15-1.2) 03/27/23 12:59 AST 15 U/L (0-40) 03/27/23 12:59 ALT 11 U/L (0-41) 03/27/23 12:59 Alkaline Phosphatase 74 U/L (40-130) 03/27/23 12:59 Total Protein 6.9 g/dL (6.6-8.7) 03/27/23 12:59 Albumin 4.4 g/dL (3.5-5.2) 03/27/23 12:59 Globulin 2.5 g/dL (1.3-4.6) 03/27/23 12:59 No radiology studies performed this visit Discharge Plan Discharge Patient Disposition: Home Clinical Impression: Dehydration, Nausea & vomiting, Withdrawal syndrome Condition: Stable Prescriptions: New promethazine 25 mg tablet 25 mg PO TID PRN (Reason: nausea and vomiting) Qty: 20 0RF No Action hydroxyzine pamoate 50 mg Capsule 50 mg PO DAILY PRN (Reason: Anxiety) Prozac 20 mg Capsule 20 mg PO DAILY Vivitrol 380 mg Suspension,Extended Rel Recon See Rx Instructions .ROUTE .COMPLEX Rx Instructions: intramuscularly every 30 days Discharge Orders: Discharge ED (Routine); Ordered 03/27/23 Ordered By: Carissa Qureshi Referrals: Isidro Kendrick MD [Physician] - Discharge Diet: Advance as tolerated Discharge Activity: Resume usual activity Patient Instructions: Opioid Safety, Pain Management Coding Level of Care Code ED Pest Locator for Radha Arora
[2023-03-27 14:29] VITALS: BP 102/56; PULSE 81; RESP 16; O2SAT 98
== END 2023-03-27 14:30 | disposition home or self-care (01) ==
PROVIDERS: Emergency Provider Family Medicine
DX: F11.13 Opioid abuse with withdrawal (principal); F10.139 Alcohol abuse with withdrawal, unspecified; R11.2 Nausea with vomiting, unspecified; E86.0 Dehydration
CPT/HCPCS: 80053; 85025; 96361; 96374; 96375; 99284; J2060; J2765; J7030

== ENCOUNTER 2023-09-16 17:27 | Inpatient (IN) | payer SELFPAY ==
[2023-09-16 17:29] VITALS: BP 125/99; PULSE 74; RESP 18; TEMP 36.8; O2SAT 94; BMI 19.0
--- NOTE | 2023-09-16 17:38 | W.ED.PSYCHS ---
HPI - Psych General: Chief Complaint: Psychiatric Symptoms Stated Complaint: MHE Time Seen by Provider: 09/16/23 17:28 Source: patient Mode of arrival: ambulatory Limitations: no limitations History of Present Illness: 27-year-old male who states that he is going through a break-up he became upset today he states he took 1 strip of Suboxone and intent to kill himself he does take Suboxone daily he states he just no longer wants to live denies any worsening proving factors. Associated symptoms: Reports depression and suicidal ideation Review of Systems Const: Denies: fever(s), chills, body aches or change in appetite ENMT: Denies: throat pain or dental pain Card: Denies: chest pain Resp: Denies: dyspnea GI: Denies: abdominal pain, nausea, vomiting or diarrhea : Denies: dysuria Musc: Denies: neck pain or back pain Skin/Breast: Denies: rash Neuro: Denies: headache(s) Psych: Reports: depression and suicidal ideation [facility] ED PFSH: Family History (Updated 11/20/22 @ 14:35 by Scott Hirsch) Other Psychiatric care Social History Alcohol intake: current Substance/Drug Use: former Physical Exam Const: COMMON NORMALS: no acute distress, patient oriented x3 and healthy appearing HENMT: COMMON NORMALS: normocephalic and atraumatic HEAD & SCALP: normocephalic and atraumatic Neck/C-Spine: COMMON NORMALS: full ROM and supple Chest: COMMONS NORMALS: normal inspection of the chest and normal palpation of entire chest wall Resp: COMMON NORMALS: normal respiratory effort Cardio: COMMON NORMALS: regular rate, regular rhythm and No murmurs present (Cardio) RATE: regular rate RHYTHM: regular rhythm Extremity: COMMON NORMALS: normal to inspection and full ROM Neuro: COMMON NORMALS: patient oriented x3, moves all extremities and no focal motor deficits Psych: COMMON NORMALS: mental status grossly normal, Normal thought process present and cooperative MOOD & AFFECT: Yes depressed mood THOUGHT PROCESS: Normal thought process present THOUGHT CONTENT: Yes Suicidality present Skin: COMMON NORMALS: no rashes or lesions noted and no wounds GENERAL SKIN EXAM: no rashes or lesions noted Course Vital Signs: Vital signs: Vital Signs Temperature 98.2 F 09/16/23 17:29 Pulse Rate 74 09/16/23 17:29 Respiratory Rate 18 09/16/23 17:29 Blood Pressure 125/99 09/16/23 17:29 Pulse Oximetry 94 09/16/23 17:29 Oxygen Delivery Me thod Room Air 09/16/23 17:29 MDM - Psych Medical Decision Making Patient presents here with suicidal ideation he did take some attempt to overdose he is well-appearing no signs of any lethal dose spoke to psychiatrist patient is medically cleared and will admit. Medical Records I reviewed the patient's medical records. Lab Data I reviewed the patient's lab results. 09/16/23 17:41 09/16/23 17:41 Laboratory Results WBC 14.92 10^3/uL (3.29-11.43) H 09/16/23 17:41 RBC 5.03 10^6/uL (3.85-5.65) 09/16/23 17:41 Hgb 16.10 g/dL (11.27-16.99) 09/16/23 17:41 Hct 47.1 % (37-53) 09/16/23 17:41 MCV 93.6 fl (82-101) 09/16/23 17:41 MCH 32.0 pg (27-33) 09/16/23 17:41 MCHC 34.2 g/dL (30-55) 09/16/23 17:41 RDW 13.0 % (12.1-15.1) 09/16/23 17:41 Plt Count 262 10^3/cmm (157-399) 09/16/23 17:41 MPV 10.0 fL (7.4-10.4) 09/16/23 17:41 Neut % (Auto) 84.7 % 09/16/23 17:41 Lymph % (Auto) 9.7 % 09/16/23 17:41 [place] % (Auto) 4.8 % 09/16/23 17:41 Eos % (Auto) 0.1 % 09/16/23 17:41 Baso % (Auto) 0.4 % 09/16/23 17:41 Neut # (Auto) 12.63 10^3/uL (1.8-7.7) H 09/16/23 17:41 Lymph # (Auto) 1.5 10^3/uL (0.8-4.8) 09/16/23 17:41 [place] # (Auto) 0.7 10^3/uL (0.2-0.9) 09/16/23 17:41 Eos # (Auto) 0.0 10^3/uL (0.0-0.8) 09/16/23 17:41 Baso # (Auto) 0.1 10^3/uL (0.0-0.1) 09/16/23 17:41 Nucleated RBC % (auto) 0 % 09/16/23 17:41 Nucleated RBCs # 0.0 /100WBC 09/16/23 17:41 Sodium 141 mmol/L (136-145) 09/16/23 17:41 Potassium 3.9 mmol/L (3.5-5.1) 09/16/23 17:41 Chloride 102 mmol/L (98-107) 09/16/23 17:41 Carbon Dioxide 27 mmol/L (22-29) 09/16/23 17:41 Anion Gap 15.9 (5-19) 09/16/23 17:41 BUN 14 mg/dL (6-20) 09/16/23 17:41 Creatinine 0.8 mg/dL (0.7-1.2) 09/16/23 17:41 GFR Calculation 114.3 mL/min (90-130) 09/16/23 17:41 Glucose 112 mg/dL (65-115) 09/16/23 17:41 Calculated Osmolality 293 mOsm/kg (285-295) 09/16/23 17:41 Calcium 9.8 mg/dL (8.5-10.5) 09/16/23 17:41 Total Bilirubin 0.5 mg/dL (0.15-1.2) 09/16/23 17:41 AST 20 U/L (0-40) 09/16/23 17:41 ALT 15 U/L (0-41) 09/16/23 17:41 Alkaline Phosphatase 72 U/L (40-130) 09/16/23 17:41 Total Protein 8.0 g/dL (6.6-8.7) 09/16/23 17:41 Albumin 5.4 g/dL (3.5-5.2) H 09/16/23 17:41 Globulin 2.6 g/dL (1.3-4.6) 09/16/23 17:41 Salicylates < 0.3 mg/dL (3-10) L 09/16/23 17:41 Acetaminophen < 5.0 ug/mL (10-30) L 09/16/23 17:41 Ethyl Alcohol < 10 mg/dL (0-10) 09/16/23 17:41 No radiology studies performed this visit Discharge Plan Discharge Patient Disposition: Admitted As Inpatient Clinical Impression: Suicidal ideation Condition: Stable Prescriptions: No Action hydroxyzine pamoate 50 mg Capsule 50 mg PO DAILY PRN (Reason: Anxiety) Prozac 20 mg Capsule 20 mg PO DAILY Vivitrol 380 mg Suspension,Extended Rel Recon See Rx Instructions .ROUTE .COMPLEX Rx Instructions: intramuscularly every 30 days promethazine 25 mg tablet 25 mg PO TID PRN (Reason: nausea and vomiting) Qty: 20 0RF Coding Level of Care Code ED Medical Device Sales Consultant for Radha Arora
[2023-09-16 17:50] LABS: Basophils # 0.1 10^3/uL (0.0-0.1); Basophils % 0.4 %; Eosinophils % 0.1 %; Hematocrit 47.1 % (37-53); Lymphocytes # 1.5 10^3/uL (0.8-4.8); Lymphocytes % 9.7 %; Mean Corpuscular HGB Conc 34.2 g/dL (30-55); Mean Corpuscular Volume 93.6 fl (82-101); Monocytes # 0.7 10^3/uL (0.2-0.9); Monocytes % 4.8 %; Neutrophils # 12.63 10^3/uL (1.8-7.7); Neutrophils % 84.7 %; Nucleated Red Blood Cells % 0 %; Platelet Count 262 10^3/cmm (157-399); Red Blood Count 5.03 10^6/uL (3.85-5.65); White Blood Count 14.92 10^3/uL (3.29-11.43)
[2023-09-16 18:10] LABS: Alanine Aminotransferase 15 U/L (0-41); Albumin Level 5.4 g/dL (3.5-5.2); Alkaline Phosphatase 72 U/L (40-130); Anion Gap 15.9 (5-19); Aspartate Amino Transferase 20 U/L (0-40); Blood Urea Nitrogen 14 mg/dL (6-20); Calcium 9.8 mg/dL (8.5-10.5); Carbon Dioxide 27 mmol/L (22-29); Chloride 102 mmol/L (98-107); Creatinine Clr Calc Pharmacy 109.2637; Globulin 2.6 g/dL (1.3-4.6); Glomerular Filtration Rate 114.3 mL/min (90-130); Glucose 112 mg/dL (65-115); Osmolality Calculated 293 mOsm/kg (285-295); Potassium 3.9 mmol/L (3.5-5.1); Sodium 141 mmol/L (136-145); Total Bilirubin 0.5 mg/dL (0.15-1.2)
[2023-09-16 18:12] LABS: Acetaminophen < 5.0 ug/mL (10-30); Alcohol Level < 10 mg/dL (0-10); Salicylate < 0.3 mg/dL (3-10)
--- NOTE | 2023-09-16 18:13 | PC.NURSE ---
96 hour hold rights read and reviewed with patient. Patient stated He is glad that he is on a hold if not things would have been alot worse for him. Patient verbalized understandings and Copy of rights given to patient.
[2023-09-16 18:51] LABS: Amphetamines Screen Urine Negative (Negative); Barbiturates Screen Urine Negative (Negative); Benzodiazepines Screen Urine Negative (Negative); Cocaine Screen Urine Negative (Negative); Opiate Screen Urine Negative (Negative); PCP Screen Urine Negative (Negative); THC Screen Urine Positive (Negative)
--- NOTE | 2023-09-16 19:02 | ECG_ITS ---
[facility] Test Date: 2023-09-16 Pat Name: Sal Rose Department: Room: 153 Gender: Male [place]: : 1995 Requested By: Boubacar Resendiz Order Number: [id number] Ryan MD: Diogenes Barron M.D. Measurements Intervals [place] Rate: 70 P: -30 UT: 109 QRS: 134 QRSD: 104 T: 127 QT: 387 QTc: 418 Interpretive Statements SINUS RHYTHM WITH SHORT UT INTERVAL RIGHT AXIS DEVIATION [QRS AXIS > 100] MODERATE ST DEPRESSION [0.05+ mV ST DEPRESSION] No previous ECG available for comparison Electronically Signed On 09-16-2023 22:11:01 CDT by Diogenes Barron M.D. [email or web address]
[2023-09-16 19:19] VITALS: BP 117/77; PULSE 71; RESP 16; O2SAT 100
[2023-09-16 20:04] VITALS: BP 122/77; PULSE 60; RESP 17; TEMP 36.4; O2SAT 99
[2023-09-16] MEDS: ondansetron 4 MG Tablet PO (20:25)
[2023-09-16 21:24] VITALS: BP 128/80; PULSE 63; RESP 17; TEMP 36.5; O2SAT 100
[2023-09-17 06:00] VITALS: BP 112/66; PULSE 80; RESP 17; O2SAT 97
[2023-09-17] MEDS: hyDROXYzine 25 mg Capsule 50 MG PO (08:14)
--- NOTE | 2023-09-17 08:53 | W.PM.NPUH&PS ---
Providers/Chief Complaint Admitting Physician: Bj Hillman MD Chief Complaint: MHE HPI NPU History of Present Illness Sal Rose is a 27 year old male who presented to the emergency department with the following report: Chief Complaint: Psychiatric Symptoms Stated Complaint: MHE Time Seen by Provider: 09/16/23 17:28 Source: patient Mode of arrival: ambulatory Limitations: no limitations History of Present Illness: 27-year-old male who states that he is going through a break-up he became upset today he states he took 1 strip of Suboxone and intent to kill himself he does take Suboxone daily he states he just no longer wants to live denies any worsening proving factors. Associated symptoms: Reports depression and suicidal ideation. He was admitted to the neuropsychiatric unit for definitive treatment of those issues. He is known to this director underwriter sales through past hospitalization in November 2022 and an excerpt of that discharge summary is included for context and the fact that he denies substantive changes since that time. He also reports that this is essentially d?j? vu all over again. He reports that he is having the same issue with the same girl as well as addiction issues. He reports the thing that is changed is that before he was having difficulty with alcohol and he has been able to essentially put the alcohol behind him. However he reports that other drugs of abuse including cannabis and cocaine have been a problem. He reports that he has been doing well as far as his recovery but then he got really upset with this young lady and was almost using 2 spite her but it was clearly just hurting himself which makes him extremely angry when he thinks about her now. He reports that he still lives at home with his mother and that this significant other have been trying to stay there/move in but she has not been coming through on the things that they agreed upon. He reports that she misses work and is not reliable that way. He reports that he has been working for about 7 months at a new place since around the time he got out last year. He reports that his recent use has proved problematic. We discussed the possibility of either restarting previous medication or starting an alternative medication including the risks, benefits and alternatives and he understood and agreed to proceed as is documented in this note. Per his 11/13/2022 [facility] inpatient psychiatric discharge summary: Discharge Diagnosis (1) Alcohol use disorder, severe, dependence: Status: Acute (2) Partner relational problem: Status: Acute (3) History of trauma: Status: Acute (4) Depression: Status: Acute Reason for Visit Reason for Visit: SI Brief History: History of Present Illness Sal Rose is a 26 year old male who presented to the emergency department with the following report: Stated Complaint: SI Time Seen by Provider: 11/08/22 23:43 Source: patient Mode of arrival: ambulatory Limitations: no limitations History of Present Illness: 26-year-old male who states that he has lost everything recently has been under a lot of stress and just feeling worthless he has been having active suicidal thoughts he states he has a plan but he will not tell me. When he first got out of the room he is trying to show his finger in the electric sockets he states he went electrocute himself. He has been drinking alcohol tonight former drug user but states he is clean currently denies any worsening proving factors. Associated symptoms: Reports depression and suicidal ideation. He was admitted to the neuropsychiatric unit for definitive treatment of those issues. The patient presents today reporting that he has no previous psychiatric hospitalizations. He endorses some outpatient psychiatric services, and he reports earlier this month he had inpatient detox/substance abuse treatment. He reports some anti-anxiety medications. He reports that he was living with his girlfriend but was moving out, and his brother picked him up and they were going down the road and noticed a cooler that was all taped up, and they got out to move it off the road and noticed a stench and opened it and there was a body smell and bones, and his brother and girlfriend contacted the police. Afterwards, he got brought here because he was still really out of sorts. He is on a 96-hour hold, which extends to November 17, and he expressed concerns because he has a job that is starting Thursday. We discussed that he could be here for the 96 hours but could possibly be discharged earlier depending on how things go, but that he would at least be here for a day. He endorses that this situation was upsetting but there was also alcohol involved. He reports that he completed the thirty-day program he was in recently and it went well, and he had 55 days of sobriety. He reports that last night was the first time he drank again since treatment, after this incident, and it impacted him more because he felt upset about messing up his sobriety. The patient denies cigarette use or vaping. He reports that he started drinking alcohol too much around 14 to 16 years old. He reports that he was in the and had some periods of sobriety then. He endorses some cannabis use, at least once a week. He reports some experimentation with cocaine and methamphetamine the beginning of 2019. He denies other illicit drug use. He reports two drug rehabilitation programs, this recent one and one in 2017. He endorses one DUI, before he went into treatment recently. He denies any other drug related charges. He reports that growing up his mother had mental health issues and he had to figure things out for himself, and it was challenging. He reports some sleep issues. He reports some suicidal thoughts and passive wish. He denies self-injurious behavior. He endorses that he has had some anxiety, with sweaty palms and shortness of breath, and worrying. He endorses paranoia. He denies auditory or visual hallucinations. He reports some nightmares and flashbacks from seeing people that have committed suicide. PSYCHIATRIC HISTORY: As above. SUBSTANCE ABUSE HISTORY: As above. FAMILY HISTORY: The patient reports mental health issues on his mother?s side of the family. He reports addiction issues on both sides of the family. He endorses a suicide completion of a cousin on his mother?s side. DEVELOPMENTAL HISTORY: The patient reports that his mother said he was born not crying. He learned to walk and talk and met developmental milestones on time. The patient endorses speech therapy and learning support. PSYCHOSOCIAL HISTORY: The patient reports that his mother and father were together when he was born and split up later. He reports that he has two younger brothers from that union. He denies any other siblings. He describes his childhood as good at first and then he had to grow up fast. He denies emotional, physical, or sexual abuse, but there was neglect. He endorses some CYS involvement. 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 He endorses graduating from high school. He denies additional training. He endorses being heterosexual, with the longest relationship being his current relationship of about two years. He denies being and has no children. He was in the from 2013 to 2018, he was in [employer] and [employer]. The longest job he had was in the . He endorses being Catholic. He currently lives at his mother?s apartment. LEGAL HISTORY: He had one night in [facility]. MEDICAL HISTORY: He reports having high blood pressure. Hospital Course Patient slowly acclimated to the individual, group and milieu therapies provided. He presented with psychosocial stressors of significant partner relational problems, not being on his medications, not being sure where he was going to live and having relapsed on alcohol. Eventually his withdrawal resolved. We added thiamine to his regimen. We restarted Invega to treat his baseline paranoia. Ultimately he arrived on a 96-hour hold. We monitored him for safety and ensure there was no lingering suicidality. He improved significantly once he was sober and had several days on medications. He worked with the social work team to come up with appropriate follow-up and discharge appointments and his mother was involved with his care as a support. He was able to contract for safety outside of the hospital prior to discharge. During the hospitalization, he had routine laboratory studies which were within normal limits except for a few outliers. Additionally he had general medical evaluation which was also within normal limits and revealed no new acute processes. At the time of discharge, he denied any lethality and he was absent psychosis. Mood and anxiety were well managed and he endorsed a plan to avoid all drugs of abuse, and follow-up with the recommended post hospital services. He was evaluated and deemed to be absent credible lethality and had received the maximum benefit from an inpatient hospitalization, so was discharged. Meds NPU Home Medications Medication Instructions Recorded Confirmed Last Taken Type No Known Home Medications 09/16/23 09/16/23 Unknown History Allergies Allergy/AdvReac Type Severity Reaction Status Date / Time No Known Allergies Allergy Verified 11/18/22 09:48 [facility] NPU PFSH: Family History (Updated 11/20/22 @ 14:35 by Scott Hirsch) Other Psychiatric care Social History Alcohol intake: current Substance/Drug Use: former Mental Status Exam MSE Comments: This is a slender dark skined male, in hospital scrubs, with adequate grooming and eye contact. No abnormal movements mild psychomotor retardation. Cooperative with exam in mild distress. Speech was normal rate and slightly decreased volume. Mood described as very frustrated when I think about her; affect congruent. Thought process, organized. Thought content: patient denied any suicidal or homicidal ideation, there were no delusions reported or noted, patient denied any auditory or visual hallucinations. Attention, concentration, and memory appeared intact, but none were formally tested. Alert and oriented times three. Insight and judgment are fair. Impulse control is limited. Vitals/I&O/Wt Last Vital Signs Temp 97.7 F 09/16/23 21:24 Pulse 80 09/17/23 06:00 Resp 17 09/17/23 06:00 BP 112/66 09/17/23 06:00 Pulse Ox 97 09/17/23 06:00 O2 Del Method Room Air 09/16/23 20:06 Weight last 48 hrs Weight 56.699 kg Data NPU 09/16/23 17:41 09/16/23 17:41 A&P Assessment and plan (1) Alcohol use disorder, severe, dependence: (2) Partner relational problem: (3) History of trauma: (4) Depression: (5) Cannabis use disorder: (6) Intentional drug overdose: (7) Suicidal ideation: Plan This is a 26-year-old dark skinned male, who presents on a 96-hour hold with a history of depression and addiction with recent relapse against the backdrop of serious concerns about his likely ex-girlfriend. He reports that he wants to get things back on track and that he is going to consider restarting medication. He does not want to go back down the wrong trail again. 1. Continue current medication. He said he would consider medication choices that were discussed. 2. Encourage individual, group, and milieu therapy. 3. Continue q-15-minute checks for safety. 4. Encourage sober living treatment after discharge at the highest level of care to which he willing to commit. 5. We will get collateral information. Involuntary Hold Information 96 Hour Hold: 96 Hour Involuntary Admission: Yes 96 Hour Hold Ending Date: 09/22/23 96 Hour Hold Ending Time: 17:42 Attestations NPU Medical Necessity Statement*: Inpatient hospitalization is medically necessary and the clinically appropriate intervention, at this time. We will monitor medications and make changes as indicated. Patient will be in the hospital for over two midnights. Likely length of stay is three to five days. Coding Level of Care Code Acute Code for [facility] Fwd Diagnoses Alcohol use disorder, severe, dependence F10.20 Partner relational problem Z63.0 History of trauma Z87.828 Depression F32.A Cannabis use disorder F12.90 Intentional drug overdose T50.902A Suicidal ideation R45.851
--- NOTE | 2023-09-17 09:17 | PC.NURSE ---
IN BED SITTING. PT IS OBSERVED BEING TEARFUL WITH ASSESSMENT. PT SPEECH IS MUMBLED. PT IS NOTED TO HAVE A FLAT AFFECT AND DEPRESSED MOOD. PT RECENTLY BROKE UP WITH GIRLFRIEND AND IS UNABLE TO SORT THROUGH HIS INTENSE GRIEF. DENIES PAIN. RATES ANXIETY /10 AND DEPRESSION 8/10. DENIES SI/HI AND AVH AT THIS TIME. MOTHER CALLED AND MADE A REPORT THAT PT HAD BEEN DRINKING HEAVILY PRIOR TO ER VISIT. MOTHER WAS INFORMED THAT PT HAD NO ALCOHOL IN HIS SYSTEM AT THE TIME OF ADMISSION. ALL QUESTIONS WERE ANSWERED AND SUPPORT WAS VOICED.
[2023-09-17 13:19] VITALS: BP 103/55; PULSE 87; RESP 20; TEMP 36.6; O2SAT 98
[2023-09-17 19:52] VITALS: BP 101/63; PULSE 73; RESP 15; TEMP 37; O2SAT 97
[2023-09-18 06:00] VITALS: BP 109/67; PULSE 97; RESP 14; TEMP 36.7; O2SAT 98
--- NOTE | 2023-09-18 12:24 | P.NPUPN_ITS ---
Subjective NPU 2 Subjective: Patient presented today reporting that he continues to be not interested in restarting any medication for depression. We discussed his clear and present depressive symptoms and concerns that not treating would keep him at risk for negative outcomes. We discussed his mother calling and having real concerns about his risk for suicide based on the things he saying in their conversations. We discussed that he is on a 96-hour hold and at this point we have concerns about releasing him. We agreed we would continue to discuss different options for treatment. He endorsed a plan to move to [place] where there is other family as he reports he and his mother struggle for various reasons. Mental Status Exam 2 MSE Comments: This is a slender dark skined male, in hospital scrubs, with adequate grooming and eye contact. No abnormal movements mild psychomotor retardation. Cooperative with exam in mild distress. Speech was normal rate and slightly decreased volume. Mood described as very frustrated when I think about her; affect congruent. Thought process, organized. Thought content: patient denied any suicidal or homicidal ideation, there were no delusions reported or noted, patient denied any auditory or visual hallucinations. Attention, concentration, and memory appeared intact, but none were formally tested. Alert and oriented times three. Insight and judgment are fair. Impulse control is limited. Vitals/I&O/Wt Last Vital Signs Temp 98.0 F 09/18/23 06:00 Pulse 97 09/18/23 06:00 Resp 14 09/18/23 06:00 BP 109/67 09/18/23 06:00 Pulse Ox 98 09/18/23 06:00 O2 Del Method Room Air 09/18/23 06:00 Weight last 48 hrs Weight 56.699 kg Data NPU 09/16/23 17:41 09/16/23 17:41 A&P Assessment and plan (1) Alcohol use disorder, severe, dependence: (2) Partner relational problem: (3) History of trauma: (4) Depression: (5) Cannabis use disorder: (6) Intentional drug overdose: (7) Suicidal ideation: Plan This is a 26-year-old dark skinned male, who presents on a 96-hour hold with a history of depression and addiction with recent relapse against the backdrop of serious concerns about his likely ex-girlfriend. He reports that he wants to get things back on track and that he is going to consider restarting medication. He does not want to go back down the wrong trail again. 1. Continue current medication. He said he would consider medication choices that were discussed. 2. Encourage individual, group, and milieu therapy. 3. Continue q-15-minute checks for safety. 4. Encourage sober living treatment after discharge at the highest level of care to which he willing to commit. 5. We will get collateral information. Involuntary Hold Information 2 96 Hour Hold: 96 Hour Involuntary Admission: Yes 96 Hour Hold Ending Date: 09/22/23 96 Hour Hold Ending Time: 17:42 Attestations NPU 2 Medical Necessity Statement*: Inpatient hospitalization is medically necessary and the clinically appropriate intervention, at this time. We will monitor medications and make changes as indicated. Likely length of stay is 2-4 days. Coding Level of Care Code Acute Code for [facility] Fwd Diagnoses Alcohol use disorder, severe, dependence F10.20 Partner relational problem Z63.0 History of trauma Z87.828 Depression F32.A Cannabis use disorder F12.90 Intentional drug overdose T50.902A Suicidal ideation R45.851
[2023-09-18 13:38] VITALS: BP 111/72; PULSE 88; RESP 16; TEMP 36.8; O2SAT 98
[2023-09-18] MEDS: hyDROXYzine 25 mg Capsule 50 MG PO (17:39)
--- NOTE | 2023-09-18 19:26 | PC.NURSE ---
Mother Sal mother called and stated Sal called her twice and said when he went home that he didnt want to leave. Pt had been saying that he did not have any attention to harm self or anyone. Mother was anxious and weepy asking not to let Sal go home and she was scared of him. Dr. Hillman notified what the mother said.
[2023-09-18 22:00] VITALS: BP 104/70; PULSE 80; RESP 18; TEMP 36.8; O2SAT 98
[2023-09-19 06:00] VITALS: BP 115/77; PULSE 71; RESP 15; TEMP 36.4; O2SAT 98
[2023-09-19] MEDS: hyDROXYzine 25 mg Capsule 50 MG PO (08:17)
--- NOTE | 2023-09-19 08:19 | PC.NURSE ---
Patient reports mild anxiety. Administered Vistaril 50mg PO to patient.
--- NOTE | 2023-09-19 08:23 | PC.NURSE ---
During morning assessment, patient reports that he has mild anxiety and depression. Patient denies SI, HI, AVH.
--- NOTE | 2023-09-19 09:45 | P.NPUPN_ITS ---
Subjective NPU 2 Subjective: Patient presented today reporting that he is feeling a little better. We discussed that he continues to look fairly despondent and despair and that we recommend antidepressant medications. We reviewed a few including Prozac, Lexapro and Wellbutrin which he reports he has tried before with no real success. We talked about Paxil but he did not believe he had been on it at this point he continues to report not wanting to try medication and feeling that if he moves when he gets out of here that he can find a better option for him. We discussed concerns about his ongoing depression and that Dr. Alvarado would return tomorrow to consider discharge possibilities. Mental Status Exam 2 MSE Comments: This is a slender dark skined male, in hospital scrubs, with adequate grooming and eye contact. No abnormal movements mild psychomotor retardation. Cooperative with exam in mild distress. Speech was normal rate and slightly decreased volume. Mood described as okay; affect appeared depressed and subdued. Thought process, organized. Thought content: patient denied any suicidal or homicidal ideation, there were no delusions reported or noted, patient denied any auditory or visual hallucinations. Attention, concentration, and memory appeared intact, but none were formally tested. Alert and oriented times three. Insight and judgment are fair. Impulse control is limited. Vitals/I&O/Wt Last Vital Signs Temp 97.6 F 09/19/23 06:00 Pulse 71 09/19/23 06:00 Resp 15 09/19/23 06:00 BP 115/77 09/19/23 06:00 Pulse Ox 98 09/19/23 06:00 O2 Del Method Room Air 09/19/23 06:00 Data NPU 09/16/23 17:41 09/16/23 17:41 A&P Assessment and plan (1) Partner relational problem: (2) History of trauma: (3) Depression: (4) Cannabis use disorder: (5) Intentional drug overdose: (6) Suicidal ideation: (7) Alcohol use disorder, severe, dependence: Plan This is a 26-year-old dark skinned male, who presents on a 96-hour hold with a history of depression and addiction with recent relapse against the backdrop of serious concerns about his likely ex-girlfriend. He reports that he wants to get things back on track and that he is going to consider restarting medication. He does not want to go back down the wrong trail again. 1. Continue current medication. Continue to offer antidepressant options but patient continues to refuse. 2. Encourage individual, group, and milieu therapy. 3. Continue q-15-minute checks for safety. 4. Encourage sober living treatment after discharge at the highest level of care to which he willing to commit. 5. We will get collateral information. Mother expressed concerns that he continues to report this is a reflection of their relationship which is not great. Involuntary Hold Information 2 96 Hour Hold: 96 Hour Involuntary Admission: Yes 96 Hour Hold Ending Date: 09/22/23 96 Hour Hold Ending Time: 17:42 Attestations NPU 2 Medical Necessity Statement*: Inpatient hospitalization is medically necessary and the clinically appropriate intervention, at this time. We will monitor medications and make changes as indicated. Likely length of stay is 2-3 days. Coding Level of Care Code Acute Code for Chg Fwd Diagnoses Partner relational problem Z63.0 History of trauma Z87.828 Depression F32.A Cannabis use disorder F12.90 Intentional drug overdose T50.902A Suicidal ideation R45.851 Alcohol use disorder, severe, dependence F10.20
[2023-09-19 13:51] VITALS: BP 118/82; PULSE 81; RESP 16; TEMP 36.6; O2SAT 100
[2023-09-19] MEDS: OLANZapine 5 mg ODT PO (18:02)
--- NOTE | 2023-09-19 18:02 | PC.NURSE ---
PATIENT REPORTS THAT HE FEELS LIKE HE IS GOING TO HAVE A BREAKFDOWN, PATIENT REPORTS ANXIETY. PATIENT IS TEARFUL. ADMINISTERED 5MG ODT ZYPREXA TO PATIENT.
[2023-09-19 19:56] VITALS: BP 96/63; PULSE 68; RESP 18; TEMP 36.4; O2SAT 99
[2023-09-20 06:00] VITALS: BP 109/74; PULSE 86; RESP 16; TEMP 36.6; O2SAT 98
--- NOTE | 2023-09-20 08:51 | PC.NURSE ---
IN ROOM FOR ASSESSMENT. DENIES PAIN. DENIES SI/HI AND AVH AT THIS TIME. PT IS OBSERVED HAVING A FLAT AFFECT AND DEPRESSED MOOD. PT WITHDRAWS TO ROOM BUT STATES HIS GOAL FOR THE DAY IS TO BE MORE FUNCTIONAL AND INTERACT. PT IS ON NO MEDICATIONS AND STATES TO RN, I HAVE TRIED ALL THE MEDS AND THEY DON'T WORK. I DON'T WANT TO TAKE ANYTHING. I WANT TO TRY IT ON MY OWN, ALL QUESTIONS WERE ANSWERED AND SUPPORT WAS VOICED
[2023-09-20 14:00] VITALS: BP 117/62; PULSE 110; RESP 20; TEMP 37.1; O2SAT 97
--- NOTE | 2023-09-20 14:55 | P.NPUPN_ITS ---
Subjective NPU 2 Subjective: 27-year-old male admitted with suicidal ideation with a recent relapse on alcohol and cocaine. He had reported previously having success with intramuscular Vivitrol but it switched to oral Vivitrol while in treatment with [facility]. Patient had reported continued cravings for alcohol. He had reported that his depression remained and was agreeable to trying a new medication for treating his depression. He had reported some continued feelings of hopelessness. He had reported sleep continuity disruption and reported anhedonia. He had denied any paranoia at this time and endorsed problems with concentration, low energy and low motivation. The patient reported that he would like to get help with his alcohol related issues. He had also endorsed having chronic problems with anxiety and reports that he had not been in therapy for several years. Mental Status Exam 2 MSE Comments: This is a slender dark skinned male, in hospital scrubs, with adequate grooming and eye contact. There were no abnormal involuntary motor movements mild psychomotor retardation. He was cooperative with exam in mild distress. Speech was normal in rate and decreased in volume. Mood described as depressed; affect appeared restricted in range and mood congruent. Thought process was linear and organized. Thought content: patient denied any suicidal or homicidal ideation, there were no delusions reported or noted, patient denied any auditory or visual hallucinations. Attention, concentration, and memory appeared intact, but none were formally tested. He was alert and oriented times three. Insight and judgment are fair. Impulse control is limited. Vitals/I&O/Wt Last Vital Signs Temp 97.9 F 09/20/23 06:00 Pulse 86 09/20/23 06:00 Resp 16 09/20/23 06:00 BP 109/74 09/20/23 06:00 Pulse Ox 98 09/20/23 06:00 O2 Del Method Room Air 09/20/23 06:00 Weight last 48 hrs Weight 55.508 kg Data NPU 09/16/23 17:41 09/16/23 17:41 A&P Assessment and plan (1) SRINATH (generalized anxiety disorder): (2) MDD (major depressive disorder), recurrent episode: (3) Partner relational problem: (4) History of trauma: (5) Depression: (6) Cannabis use disorder: (7) Intentional drug overdose: (8) Suicidal ideation: (9) Alcohol use disorder, severe, dependence: Plan This is a 26-year-old dark skinned male, who presents on a 96-hour hold with a history of depression and addiction with recent relapse against the backdrop of serious concerns about his likely ex-girlfriend. He reports that he wants to get things back on track and that he is going to consider restarting medication. He does not want to go back down the wrong trail again. 1. Trial of cymbalta 30mg daily to target anxiety and depression. 2. Encourage individual, group, and milieu therapy. 3. Continue q-15-minute checks for safety. 4. Encourage sober living treatment after discharge at the highest level of care to which he willing to commit. 5. Restart VIVITROL 280mg IM to target alcohol dependence. Involuntary Hold Information 2 96 Hour Hold: 96 Hour Involuntary Admission: Yes 96 Hour Hold Ending Date: 09/22/23 96 Hour Hold Ending Time: 17:42 Attestations NPU 2 Medical Necessity Statement*: Inpatient hospitalization is medically necessary and the clinically appropriate intervention, at this time. We will monitor medications and make changes as indicated. The patient's likely length of stay is 2-3 days. Coding Level of Care Code Acute Code for g Fwd Diagnoses SRINATH (generalized anxiety disorder) F41.1 MDD (major depressive disorder), recurrent episode F33.9 Partner relational problem Z63.0 History of trauma Z87.828 Depression F32.A Cannabis use disorder F12.90 Intentional drug overdose T50.902A Suicidal ideation R45.851 Alcohol use disorder, severe, dependence F10.20
[2023-09-20] MEDS: duloxetine 30 mg Capsule PO (17:55)
[2023-09-20] MEDS: trazodone 50 mg Tablet PO ×2 (20:36→22:19)
[2023-09-20 21:02] VITALS: BP 111/72; PULSE 93; RESP 18; TEMP 37; O2SAT 97
[2023-09-21 06:00] VITALS: BP 105/72; PULSE 91; RESP 18; TEMP 37; O2SAT 98
[2023-09-21] MEDS: duloxetine 30 mg Capsule PO (08:23)
--- NOTE | 2023-09-21 08:43 | PC.NURSE ---
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 DENIES PAIN. DENIES SI/HI AND AVH AT THIS TIME. RATES ANXIETY AND DEPRESSION 0/10. PT STATES HIS GOAL TODAY IS ATTENDING ALL GROUPS AND INTERACTING MORE, SO I CAN GET BETTER . ALL QUESTIONS WERE ANSWERED AND SUPPORT WAS VOICED.
--- NOTE | 2023-09-21 11:02 | PC.NURSE ---
This nurse was notified by another patient that Sal reported losing vision in his right eye. This nurse immediately responded to patient. Patient had PERRLA. Patient stated that this has happened to him in the past. Within minutes, patient reported that his vision had returned to normal. VS checked; VS were WNLs.
[2023-09-21 14:00] VITALS: BP 117/86; PULSE 101; RESP 16; TEMP 37.2; O2SAT 97
--- NOTE | 2023-09-21 14:40 | PC.NURSE ---
NEW ORDERS RECEIVED FROM DR. YATES TO CALL MEDICATION INTO PHARMACY. PT TO START VIVITROL 380 MG IM ONE TIME TOMORROW. PT IS AGREEABLE TO START MEDICATION. PHARMACY CALLED AND THEY STATE THEY WILL ORDER THE MEDICATION TODAY AND WILL HAVE IT AVAILABLE TOMORROW TO INJECT. PT EDUCATED ON NEW MEDICATION. ALL QUESTIONS ANSWERED AND SUPPORT WAS VOICED
--- NOTE | 2023-09-21 17:25 | P.NPUPN_ITS ---
Subjective NPU 2 Subjective: 27-year-old male admitted with suicidal ideation with a recent relapse on alcohol and cocaine and worsening depression. Patient had reported continued motivation to try to cut his cravings for alcohol by using Vivitrol. Patient had reported no side effects from the Cymbalta and stated that he had felt better today. He was able to attend groups and reported having some reduction in anxiety. He had denied any paranoia currently. He had reported having significant problems with concentration and reported declining memory with decreased energy and anhedonia reported for several months. Mental Status Exam 2 MSE Comments: This is a slender dark skinned male, in hospital scrubs, with adequate grooming and eye contact. There were no abnormal involuntary motor movements mild psychomotor retardation. He was cooperative with exam in mild distress. Speech was normal in rate and decreased in volume and normal prosody. Mood described as a little better.; affect appeared restricted in range and mood incongruent. Thought process was linear and organized. Thought content: patient denied any suicidal or homicidal ideation, there were no delusions reported or noted, patient denied any auditory or visual hallucinations. Attention, concentration, and memory appeared intact, but none were formally tested. He was alert and oriented times three. His insight was improving and his judgment is poor. Impulse control is limited. Vitals/I&O/Wt Last Vital Signs Temp 99.0 F 09/21/23 14:00 Pulse 101 H 09/21/23 14:00 Resp 16 09/21/23 14:00 BP 117/86 09/21/23 14:00 Pulse Ox 97 09/21/23 14:00 O2 Del Method Room Air 09/21/23 06:00 Weight last 48 hrs Weight 55.508 kg Data NPU 09/16/23 17:41 09/16/23 17:41 A&P Assessment and plan (1) SRINATH (generalized anxiety disorder): (2) MDD (major depressive disorder), recurrent episode: (3) Partner relational problem: (4) History of trauma: (5) Depression: (6) Cannabis use disorder: (7) Intentional drug overdose: (8) Suicidal ideation: (9) Alcohol use disorder, severe, dependence: Plan This is a 26-year-old dark skinned male, who presents on a 96-hour hold with a history of depression and addiction with recent relapse against the backdrop of serious concerns about his likely ex-girlfriend. He reports that he wants to get things back on track and that he is going to consider restarting medication. He does not want to go back down the wrong trail again. 1. Continue cymbalta 30mg daily to target anxiety and depression. 2. Encourage individual, group, and milieu therapy. 3. Continue q-15-minute checks for safety. 4. Encourage sober living treatment after discharge at the highest level of care to which he willing to commit. 5. Restart VIVITROL 280mg IM to target alcohol dependence. Involuntary Hold Information 2 96 Hour Hold: 96 Hour Involuntary Admission: Yes 96 Hour Hold Ending Date: 09/22/23 96 Hour Hold Ending Time: 17:42 Attestations NPU 2 Medical Necessity Statement*: Inpatient hospitalization is medically necessary and the clinically appropriate intervention, at this time. We will monitor medications and make changes as indicated. The patient's likely length of stay is 2-3 days. Coding Level of Care Code Acute Code for [facility] Fwd Diagnoses SRINATH (generalized anxiety disorder) F41.1 MDD (major depressive disorder), recurrent episode F33.9 Partner relational problem Z63.0 History of trauma Z87.828 Depression F32.A Cannabis use disorder F12.90 Intentional drug overdose T50.902A Suicidal ideation R45.851 Alcohol use disorder, severe, dependence F10.20
[2023-09-21] MEDS: hyDROXYzine 25 mg Capsule 50 MG PO (19:07)
[2023-09-21] MEDS: trazodone 50 mg Tablet PO (21:16)
[2023-09-21 22:00] VITALS: BP 107/76; PULSE 95; RESP 18; TEMP 36.6; O2SAT 95
[2023-09-22 06:00] VITALS: BP 101/74; PULSE 92; RESP 15; TEMP 36.8; O2SAT 94
[2023-09-22] MEDS: duloxetine 30 mg Capsule PO (09:24)
--- NOTE | 2023-09-22 09:31 | PC.NURSE ---
Patient states that he is 'doing really good. Patient denies anxiety this morning. Patient also denies depression, SI, HI, and AVH. Patient appears to be in good spirits.
[2023-09-22 14:00] VITALS: BP 123/75; PULSE 89; RESP 20; TEMP 37; O2SAT 97
[2023-09-22] MEDS: OLANZapine 5 mg ODT PO (15:23)
--- NOTE | 2023-09-22 15:29 | PC.NURSE ---
Administered Vivitrol 380mg into patient's right gluteal. Patient tolerated well. Lot [id number] EXP: 11/12/25
--- NOTE | 2023-09-22 15:35 | PC.NURSE ---
Administered Zyprexa 5mg ODT to patient for anxiety. Patient voiced anxiety and was visibly anxious as this nurse prepared to give patient an injection.
--- NOTE | 2023-09-22 16:56 | W.PM.NPUPNS ---
Subjective NPU Subjective: 27-year-old male admitted with suicidal ideation with a recent relapse on alcohol and cocaine and worsening depression. The patient was given Vivitrol today. He had expressed motivation to resume work tomorrow. He had reported his energy had improved and he felt less anxious. He was more engaged in therapy and more social. He had reported having had depression for several months that had eventually led to his relapse on alcohol. He had reported feeling more optimistic about the future. He had reported and not attending AA meetings but reported that this could be helpful for him. He had continued to endorse some anhedonia Mental Status Exam MSE Comments: This is a slender dark skinned male, in hospital scrubs, with adequate grooming and eye contact. There were no abnormal involuntary motor movements mild psychomotor retardation. He was cooperative with exam in mild distress. Speech was normal in rate and decreased in volume with normal prosody. Mood described as better.; affect appeared less restricted in range today. Thought process was linear and organized. Thought content: patient denied any suicidal or homicidal ideation, there were no delusions reported or noted, patient denied any auditory or visual hallucinations. Attention, concentration, and memory appeared intact, but none were formally tested. He was alert and oriented x3. His insight was improving and his judgment is improving as well. Impulse control is limited. Vitals/I&O/Wt Last Vital Signs Temp 98.6 F 09/22/23 14:00 Pulse 89 09/22/23 14:00 Resp 20 H 09/22/23 14:00 BP 123/75 09/22/23 14:00 Pulse Ox 97 09/22/23 14:00 O2 Del Method Room Air 09/22/23 06:00 Data NPU 09/16/23 17:41 09/16/23 17:41 A&P Assessment and plan (1) SRINATH (generalized anxiety disorder): (2) MDD (major depressive disorder), recurrent episode: (3) Partner relational problem: (4) History of trauma: (5) Depression: (6) Cannabis use disorder: (7) Intentional drug overdose: (8) Suicidal ideation: (9) Alcohol use disorder, severe, dependence: Plan This is a 26-year-old dark skinned male, who presents on a 96-hour hold with a history of depression and addiction with recent relapse against the backdrop of serious concerns about his likely ex-girlfriend. He reports that he wants to get things back on track and that he is going to consider restarting medication. He does not want to go back down the wrong trail again. 1. Continue cymbalta 30mg daily to target anxiety and depression. 2. Encourage individual, group, and milieu therapy. 3. Continue q-15-minute checks for safety. 4. Encourage sober living treatment after discharge at the highest level of care to which he willing to commit. 5. VIVITROL 280mg IM given to target alcohol dependence. Involuntary Hold Information 96 Hour Hold: 96 Hour Involuntary Admission: Yes 96 Hour Hold Ending Date: 09/22/23 96 Hour Hold Ending Time: 17:42 Attestations NPU Medical Necessity Statement*: Inpatient hospitalization is medically necessary and the clinically appropriate intervention, at this time. We will monitor medications and make changes as indicated. The patient's likely length of stay is 1-2 days. Coding Level of Care Code Acute Code for [facility] Fwd Diagnoses SRIANTH (generalized anxiety disorder) F41.1 MDD (major depressive disorder), recurrent episode F33.9 Partner relational problem Z63.0 History of trauma Z87.828 Depression F32.A Cannabis use disorder F12.90 Intentional drug overdose T50.902A Suicidal ideation R45.851 Alcohol use disorder, severe, dependence F10.20
[2023-09-22 19:55] VITALS: BP 102/72; PULSE 84; RESP 15; TEMP 36.6; O2SAT 96
[2023-09-23 06:00] VITALS: BP 117/71; PULSE 89; RESP 15; TEMP 36.6; O2SAT 97
--- NOTE | 2023-09-23 08:27 | PC.NURSE ---
RESTING IN BED AWAKE. DENIES SI/HI AND AVH AT THIS TIME. PT TOOK VIVITROL INJECTION YESTERDAY AND STATES HE HOPES HE GOE HOME TODAY. RATES ANXIETY AND DEPRESSION 0/10. AFFECT IS BRIGHTER THIS AM AND PT SHOWS INSIGHT TO GOING HOME, STAYING SOBER AND STARTING A NEW LIFE. ALL QUESTIONS ANSWERED AND SUPPORT VOICED..
[2023-09-23] MEDS: duloxetine 30 mg Capsule PO (08:36)
[2023-09-23 10:18] VITALS: BP 117/71; PULSE 89; RESP 15; TEMP 36.6; O2SAT 97
--- NOTE | 2023-09-23 13:56 | W.PM.NPUDCS ---
Diagnoses at Discharge Discharge Diagnosis (1) SRINATH (generalized anxiety disorder): Status: Acute (2) MDD (major depressive disorder), recurrent episode: Status: Acute (3) Partner relational problem: Status: Acute (4) History of trauma: Status: Acute (5) Depression: Status: Acute (6) Cannabis use disorder: Status: Acute (7) Intentional drug overdose: Status: Acute (8) Suicidal ideation: Status: Acute (9) Alcohol use disorder, severe, dependence: Status: Acute Reason for Visit Reason for Visit: MHE Brief History: History of Present Illness Sal Rose is a 27 year old male who presented to the emergency department with the following report: Chief Complaint: Psychiatric Symptoms Stated Complaint: MHE Time Seen by Provider: 09/16/23 17:28 Source: patient Mode of arrival: ambulatory Limitations: no limitations History of Present Illness: 27-year-old male who states that he is going through a break-up he became upset today he states he took 1 strip of Suboxone and intent to kill himself he does take Suboxone daily he states he just no longer wants to live denies any worsening proving factors. Associated symptoms: Reports depression and suicidal ideation. He was admitted to the neuropsychiatric unit for definitive treatment of those issues. He is known to this contract writer through past hospitalization in November 2022 and an excerpt of that discharge summary is included for context and the fact that he denies substantive changes since that time. He also reports that this is essentially d?j? vu all over again. He reports that he is having the same issue with the same girl as well as addiction issues. He reports the thing that is changed is that before he was having difficulty with alcohol and he has been able to essentially put the alcohol behind him. However he reports that other drugs of abuse including cannabis and cocaine have been a problem. He reports that he has been doing well as far as his recovery but then he got really upset with this young lady and was almost using 2 spite her but it was clearly just hurting himself which makes him extremely angry when he thinks about her now. He reports that he still lives at home with his mother and that this significant other have been trying to stay there/move in but she has not been coming through on the things that they agreed upon. He reports that she misses work and is not reliable that way. He reports that he has been working for about 7 months at a new place since around the time he got out last year. He reports that his recent use has proved problematic. We discussed the possibility of either restarting previous medication or starting an alternative medication including the risks, benefits and alternatives and he understood and agreed to proceed as is documented in this note. Per his 11/13/2022 [facility] inpatient psychiatric discharge summary: Discharge Diagnosis (1) Alcohol use disorder, severe, dependence: Status: Acute (2) Partner relational problem: Status: Acute (3) History of trauma: Status: Acute (4) Depression: Status: Acute Reason for Visit Reason for Visit: SI Brief History: History of Present Illness Sal Rose is a 26 year old male who presented to the emergency department with the following report: Stated Complaint: SI Time Seen by Provider: 11/08/22 23:43 Source: patient Mode of arrival: ambulatory Limitations: no limitations History of Present Illness: 26-year-old male who states that he has lost everything recently has been under a lot of stress and just feeling worthless he has been having active suicidal thoughts he states he has a plan but he will not tell me. When he first got out of the room he is trying to show his finger in the electric sockets he states he went electrocute himself. He has been drinking alcohol tonight former drug user but states he is clean currently denies any worsening proving factors. Associated symptoms: Reports depression and suicidal ideation. He was admitted to the neuropsychiatric unit for definitive treatment of those issues. The patient presents today reporting that he has no previous psychiatric hospitalizations. He endorses some outpatient psychiatric services, and he reports earlier this month he had inpatient detox/substance abuse treatment. He reports some anti-anxiety medications. He reports that he was living with his girlfriend but was moving out, and his brother picked him up and they were going down the road and noticed a cooler that was all taped up, and they got out to move it off the road and noticed a stench and opened it and there was a body smell and bones, and his brother and girlfriend contacted the police. Afterwards, he got brought here because he was still really out of sorts. He is on a 96-hour hold, which extends to November 17, and he expressed concerns because he has a job that is starting Thursday. We discussed that he could be here for the 96 hours but could possibly be discharged earlier depending on how things go, but that he would at least be here for a day. He endorses that this situation was upsetting but there was also alcohol involved. He reports that he completed the thirty-day program he was in recently and it went well, and he had 55 days of sobriety. He reports that last night was the first time he drank again since treatment, after this incident, and it impacted him more because he felt upset about messing up his sobriety. The patient denies cigarette use or vaping. He reports that he started drinking alcohol too much around 14 to 16 years old. He reports that he was in the and had some periods of sobriety then. He endorses some cannabis use, at least once a week. He reports some experimentation with cocaine and methamphetamine the beginning of 2019. He denies other illicit drug use. He reports two drug rehabilitation programs, this recent one and one in 2017. He endorses one DUI, before he went into treatment recently. He denies any other drug related charges. He reports that growing up his mother had mental health issues and he had to figure things out for himself, and it was challenging. He reports some sleep issues. He reports some suicidal thoughts and passive wish. He denies self-injurious behavior. He endorses that he has had some anxiety, with sweaty palms and shortness of breath, and worrying. He endorses paranoia. He denies auditory or visual hallucinations. He reports some nightmares and flashbacks from seeing people that have committed suicide. PSYCHIATRIC HISTORY: As above. SUBSTANCE ABUSE HISTORY: As above. FAMILY HISTORY: The patient reports mental health issues on his mother?s side of the family. He reports addiction issues on both sides of the family. He endorses a suicide completion of a cousin on his mother?s side. DEVELOPMENTAL HISTORY: The patient reports that his mother said he was born not crying. He learned to walk and talk and met developmental milestones on time. The patient endorses speech therapy and learning support. PSYCHOSOCIAL HISTORY: The patient reports that his mother and father were together when he was born and split up later. He reports that he has two younger brothers from that union. He denies any other siblings. He describes his childhood as good at first and then he had to grow up fast. He denies emotional, physical, or sexual abuse, but there was neglect. He endorses some CYS involvement. 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 He endorses graduating from high school. He denies additional training. He endorses being heterosexual, with the longest relationship being his current relationship of about two years. He denies being and has no children. He was in the from 2013 to 2018, he was in [place] and [place]. The longest job he had was in the . He endorses being [employer]. He currently lives at his mother?s apartment. LEGAL HISTORY: He had one night in [facility]p. MEDICAL HISTORY: He reports having high blood pressure. Hospital Course Patient slowly acclimated to the individual, group and milieu therapies provided. He presented with psychosocial stressors of significant partner relational problems, not being on his medications, not being sure where he was going to live and having relapsed on alcohol. Eventually his withdrawal resolved. We added thiamine to his regimen. We restarted Invega to treat his baseline paranoia. Ultimately he arrived on a 96-hour hold. We monitored him for safety and ensure there was no lingering suicidality. He improved significantly once he was sober and had several days on medications. He worked with the social work team to come up with appropriate follow-up and discharge appointments and his mother was involved with his care as a support. He was able to contract for safety outside of the hospital prior to discharge. During the hospitalization, he had routine laboratory studies which were within normal limits except for a few outliers. Additionally he had general medical evaluation which was also within normal limits and revealed no new acute processes. At the time of discharge, he denied any lethality and he was absent psychosis. Mood and anxiety were well managed and he endorsed a plan to avoid all drugs of abuse, and follow-up with the recommended post hospital services. He was evaluated and deemed to be absent credible lethality and had received the maximum benefit from an inpatient hospitalization, so was discharged. Hospital Course Hospital Course During the hospitalization, the patient had routine laboratory studies which were within normal limits except for a few outliers.? Additionally, there was a general medical evaluation which was also within normal limits and revealed no new acute processes.? At the time of discharge, lethality was denied ?and mood and anxiety were better managed.? The patient endorsed a plan to avoid all drugs of abuse and follow up with the aftercare recommendations of the treatment team.? The patient was evaluated and deemed to be absent credible lethality and had achieved the maximum benefit from an inpatient hospitalization, and so was discharged. The patient was started on Cymbalta to target anxiety and depression with reports of no side effects and improvement in mood within 1 to 2 days. He had expressed interest in receiving help for alcohol use and had previously reported a good response to Vivitrol and this was given prior to the discharge with no side effects. There was no clear evidence of psychosis during his hospital stay and no antipsychotic treatment was needed during his hospital stay. Involuntary Hold Information 96 Hour Hold: 96 Hour Involuntary Admission: Yes 96 Hour Hold Ending Date: 09/22/23 96 Hour Hold Ending Time: 17:42 Mental Status Exam MSE Comments: This is a slender dark skinned male, in hospital scrubs, with adequate grooming and eye contact. There were no abnormal involuntary motor movements with mild psychomotor retardation. He was cooperative with exam in no acute distress. Speech was normal in rate and normal in volume with normal prosody. Mood described as much better; affect appeared slightly restricted. Thought process was linear and organized. Thought content: patient denied any suicidal or homicidal ideation. There were no delusions reported or noted, patient denied any auditory or visual hallucinations. Attention, concentration, and memory appeared grossly intact. He was alert and oriented x3. His insight was improving and his judgment is improving as well. Impulse control is improved on discharge. Discharge Data Studies Completed and Pending: Laboratory Results WBC 14.92 10^3/uL (3. 29-11.43) H 09/16/23 17:41 RBC 5.03 10^6/uL (3.8 5-5.65) 09/16/23 17:41 Hgb 16.10 g/dL (11.27 -16.99) 09/16/23 17:41 Hct 47.1 % (37-53) 09/16/23 17:41 MCV 93.6 fl (82-101) 09/16/23 17:41 MCH 32.0 pg (27-33) 09/16/23 17:41 MCHC 34.2 g/dL (30-55) 09/16/23 17:41 RDW 13.0 % (12.1-15.1 ) 09/16/23 17:41 Plt Count 262 10^3/cmm (157 -399) 09/16/23 17:41 MPV 10.0 fL (7.4-10.4 ) 09/16/23 17:41 Neut % (Auto) 84.7 % 09/16/23 17:41 Lymph % (Auto) 9.7 % 09/16/23 17:41 [place] % (Auto) 4.8 % 09/16/23 17:41 Eos % (Auto) 0.1 % 09/16/23 17:41 Baso % (Auto) 0.4 % 09/16/23 17:41 Neut # (Auto) 12.63 10^3/uL (1. 8-7.7) H 09/16/23 17:41 Lymph # (Auto) 1.5 10^3/uL (0.8- 4.8) 09/16/23 17:41 [place] # (Auto) 0.7 10^3/uL (0.2- 0.9) 09/16/23 17:41 Eos # (Auto) 0.0 10^3/uL (0.0- 0.8) 09/16/23 17:41 Baso # (Auto) 0.1 10^3/uL (0.0- 0.1) 09/16/23 17:41 Nucleated RBC % (a uto) 0 % 09/16/23 17:41 Nucleated RBCs # 0.0 /100WBC 09/16/23 17:41 Sodium 141 mmol/L (136-1 45) 09/16/23 17:41 Potassium 3.9 mmol/L (3.5-5 .1) 09/16/23 17:41 Chloride 102 mmol/L (98-10 7) 09/16/23 17:41 Carbon Dioxide 27 mmol/L (22-29) 09/16/23 17:41 Anion Gap 15.9 (5-19) 09/16/23 17:41 BUN 14 mg/dL (6-20) 09/16/23 17:41 Creatinine 0.8 mg/dL (0.7-1. 2) 09/16/23 17:41 GFR Calculation 114.3 mL/min (90- 130) 09/16/23 17:41 Glucose 112 mg/dL (65-115 ) 09/16/23 17:41 Calculated Osmolal ity 293 mOsm/kg (285- 295) 09/16/23 17:41 Calcium 9.8 mg/dL (8.5-10 .5) 09/16/23 17:41 Total Bilirubin 0.5 mg/dL (0.15-1 .2) 09/16/23 17:41 AST 20 U/L (0-40) 09/16/23 17:41 ALT 15 U/L (0-41) 09/16/23 17:41 Alkaline Phosphata se 72 U/L (40-130) 09/16/23 17:41 Total Protein 8.0 g/dL (6.6-8.7 ) 09/16/23 17:41 Albumin 5.4 g/dL (3.5-5.2 ) H 09/16/23 17:41 Globulin 2.6 g/dL (1.3-4.6 ) 09/16/23 17:41 Salicylates < 0.3 mg/dL (3-10 ) L 09/16/23 17:41 Urine Opiates Scre en Negative ng/mL (N egative) 09/16/23 17:41 Acetaminophen < 5.0 ug/mL (10-3 0) L 09/16/23 17:41 Ur Barbiturates Sc reen Negative ng/mL (N egative) 09/16/23 17:41 Ur Phencyclidine S crn Negative ng/mL (N egative) 09/16/23 17:41 Ur Amphetamines Sc reen Negative ng/mL (N egative) 09/16/23 17:41 U Benzodiazepines Scrn Negative ng/mL (N egative) 09/16/23 17:41 Urine Cocaine Scre en Negative ng/mL (N egative) 09/16/23 17:41 U Marijuana (THC) Screen Positive ng/mL (N egative) H 09/16/23 17:41 Ethyl Alcohol < 10 mg/dL (0-10) 09/16/23 17:41 Vitals: Last Vital Signs Temp 98 F 09/23/23 10:18 Pulse 89 09/23/23 10:18 Resp 15 09/23/23 10:18 BP 117/71 09/23/23 10:18 Pulse Ox 97 09/23/23 10:18 O2 Del Method Room Air 09/22/23 06:00 Discharge Plan Discharge Patient Disposition: Home Condition: Stable Prescriptions: New duloxetine 30 mg Capsule,Delayed Release(Dr/Ec) 30 mg PO DAILY 30 Days Qty: 30 1RF Vivitrol 380 mg suspension,extended rel recon 380 mg IM ONCE 30 Days Qty: 1 1RF Rx Instructions: Next IM shot due on 10/20/23 Discharge Orders: Discharge Order (Routine); Ordered 09/23/23 Ordered By: Kobe Alvarado Referrals: [facility] [Outside] - 09/30/23 7:30 am (Initial assessment for services) Discharge Diet: Usual diet Discharge Activity: Resume usual activity Patient Instructions: Duloxetine (By mouth) (Iqra Mckeon Drizalma Sprinkle), Mood Disorders (DC), Depression (DC), Generalized Anxiety Disorder (ED), Cannabis Use Disorder (DC), Help Prevent Suicide (DC), Anxiety (DC), Psychotic Disorder (DC), Suicide Prevention (DC), Opioid Safety Discharge Attestations NPU Time Spent in Discharge Care*: less than 30 min Specific Discharge Activities: Specific discharge activities: educating patient, discussing with bottle caser/social workers/dc planners and documenting/other paperwork Coding Level of Care Code Acute Code for [facility] Fwd Diagnoses SRINATH (generalized anxiety disorder) F41.1 MDD (major depressive disorder), recurrent episode F33.9 Partner relational problem Z63.0 History of trauma Z87.828 Depression F32.A Cannabis use disorder F12.90 Intentional drug overdose T50.902A Suicidal ideation R45.851 Alcohol use disorder, severe, dependence F10.20
== END 2023-09-23 10:36 | disposition home or self-care (01) | DRG 918 ==
LOC: ER 18:30 → NP 19:43
PROVIDERS: Admitting Provider Psychiatry & Neurology Psychiatry; Emergency Provider Emergency Medicine; Visit Provider Psychiatry & Neurology Psychiatry
DX: T40.492A Poisoning by other synthetic narcotics, intentional self-harm, initial encounter (principal); F33.9 Major depressive disorder, recurrent, unspecified; R45.851 Suicidal ideations; Y99.9 Unspecified external cause status; Z63.0 Problems in relationship with spouse or partner; F41.1 Generalized anxiety disorder; F12.90 Cannabis use, unspecified, uncomplicated; F10.20 Alcohol dependence, uncomplicated
CPT/HCPCS: 36415; 80053; 80306; 80307; 85025; 93005; 96372; 97150; 97165; 99285; Q0162

== ENCOUNTER → 2023-10-23 11:10 | Outpatient (BNVA) | payer OTHER, SELFPAY | PROVIDERS: Visit Provider Nurse Practitioner Psychiatric/Mental Health | DX: Z79.899 Other long term (current) drug therapy (principal); F33.2 Major depressive disorder, recurrent severe without psychotic features; F43.12 Post-traumatic stress disorder, chronic; Z91.82 Personal history of military deployment; F10.20 Alcohol dependence, uncomplicated; F12.20 Cannabis dependence, uncomplicated; F17.210 Nicotine dependence, cigarettes, uncomplicated | CPT/HCPCS: 80053; 80061; 83036 ==

== ENCOUNTER 2023-12-29 20:13 | Inpatient (IN) | payer SELFPAY ==
[2023-12-29 20:16] VITALS: BP 114/80; PULSE 86; RESP 20; TEMP 36.6; O2SAT 99; BMI 18.8
--- NOTE | 2023-12-29 20:17 | XRR_ITS ---
PROCEDURE INFORMATION: Exam: XR Chest Exam date and time: 12/29/2023 8:23 PM Age: 28 years old Clinical indication: Shortness of breath; Additional info: SOB TECHNIQUE: Imaging protocol: Radiologic exam of the chest. Views: 1 view. COMPARISON: No relevant prior studies available. FINDINGS: Lungs: Unremarkable. No consolidation or mass. Pleural spaces: Unremarkable. No pleural effusion. No pneumothorax. Heart/Mediastinum: Unremarkable. No cardiomegaly. Bones/joints: Unremarkable. XR/XR chest 1V portable [id number] IMPRESSION: No acute findings.
--- NOTE | 2023-12-29 20:19 | ED.C_ITS ---
HPI - Psych 2 General: Chief Complaint: Psychiatric Symptoms Stated Complaint: SI Time Seen by Provider: 12/29/23 20:15 Source: patient and EMS Mode of arrival: EMS Limitations: no limitations History of Present Illness: 28-year-old male is here with EMS with s uicidal ideation. Police was called to patient's house and he had a rope injury and was going to hang himself never did attempt states he does want to kill himself by hanging. EMS has brought him in with his suicide complaints EMS states on the way he started complaining of some abdominal pain he does have a history of alcohol abuse. Had some nausea denies any vomiting. Associated symptoms: Reports depression and suicidal ideation Review of Systems 2 Const: Denies: fever(s), chills, body aches or change in appetite ENMT: Denies: throat pain or dental pain Card: Denies: chest pain Resp: Denies: dyspnea GI: Reports: abdominal pain and nausea; Denies: vomiting or diarrhea Musc: Denies: neck pain or back pain Skin/Breast: Denies: rash Neuro: Denies: headache(s) Psych: Reports: depression and suicidal ideation PFS ED 2 PFSH: Medical History Alcohol use disorder, severe, dependence Nicotine dependence, cigarettes, uncomplicated Cannabis dependence, episodic use Chronic post-traumatic stress disorder (PTSD) after combat Major depressive disorder, recurrent severe without psychotic features Family History (Updated 11/20/22 @ 14:35 by Scott Hirsch) Other Psychiatric care Social History Alcohol intake: current Substance/Drug Use: former Physical Exam 2 Const: COMMON NORMALS: no acute distress, patient oriented x3 and healthy appearing HENMT: COMMON NORMALS: normocephalic and atraumatic HEAD & SCALP: n ormocephalic and atraumatic Neck/C-Spine: COMMON NORMALS: full ROM and supple Chest: COMMONS NORMALS: normal inspection of the chest Resp: COMMON NORMALS: normal respiratory effort Cardio: COMMON NORMALS: regular rate, regular rhythm and No murmurs present (Cardio) RATE: regular rate RHYTHM: regular rhythm GI: COMMON NORMALS: Normal to inspection, nondistended, normoactive bowel sounds present, Soft to palpation, non-tender and no masses PALPATION: Yes Soft to palpation Extremity: COMMON NORMALS: normal to inspection and full ROM Neuro: COMMON NORMALS: patient oriented x3, moves all extremities and no focal motor deficits Psych: COMMON NORMALS: mental status grossly normal, Normal thought process present and cooperative THOUGHT PROCESS: Normal thought process present Skin: COMMON NORMALS: no rashes or lesions noted and no wounds GENERAL SKIN EXAM: no rashes or lesions noted Course 2 Vital Signs: Vital signs: Vital Signs Temperature 98.2 F 12/29/23 23:35 Pulse Rate 98 12/30/23 06:00 Respiratory Rate 14 12/30/23 06:00 Blood Pressure 98/59 12/30/23 06:00 Pulse Oximetry 98 12/30/23 06:00 Oxygen Delivery Me thod Room Air 12/30/23 06:00 MDM - Psych Medical Decision Making Suicidal ideations worsen the labs he had some slight dehydration did give him IV fluids his BMP is improved he is medically cleared I spoke to psychiatrist and will admit at this time. Medical Records I reviewed the patient's medical records. Lab Data I reviewed the patient's lab results. 12/29/23 20:37 12/29/23 22:20 Radiology Impressions Chest X-Ray 12/29/23 20:17 IMPRESSION: No acute findings. Abdomen/Pelvis CT 12/29/23 20:44 IMPRESSION: No acute findings. Laboratory Results WBC 13.06 10^3/uL (3.29-11.43) H 12/29/23 20:37 RBC 5.66 10^6/uL (3.85-5.65) H 12/29/23 20:37 Hgb 18.00 g/dL (11.27-16.99) H 12/29/23 20:37 Hct 49.8 % (37-53) 12/29/23 20:37 MCV 88.0 fl (82-101) 12/29/23 20:37 MCH 31.8 pg (27-33) 12/29/23 20:37 MCHC 36.1 g/dL (30-55) 12/29/23 20:37 RDW 12.3 % (12.1-15.1) 12/29/23 20:37 Plt Count 299 10^3/cmm (157-399) 12/29/23 20:37 MPV 9.5 fL (7.4-10.4) 12/29/23 20:37 Neut % (Auto) 78.1 % 12/29/23 20:37 Lymph % (Auto) 15.5 % 12/29/23 20:37 [place] % (Auto) 5.8 % 12/29/23 20:37 Eos % (Auto) 0.1 % 12/29/23 20:37 Baso % (Auto) 0.3 % 12/29/23 20:37 Neut # (Auto) 10.19 10^3/uL (1.8-7.7) H 12/29/23 20:37 Lymph # (Auto) 2.0 10^3/uL (0.8-4.8) 12/29/23 20:37 [place] # (Auto) 0.8 10^3/uL (0.2-0.9) 12/29/23 20:37 Eos # (Auto) 0.0 10^3/uL (0.0-0.8) 12/29/23 20:37 Baso # (Auto) 0.0 10^3/uL (0.0-0.1) 12/29/23 20:37 Nucleated RBC % (auto) 0 % 12/29/23 20:37 Nucleated RBCs # 0.0 /100WBC 12/29/23 20:37 Sodium 139 mmol/L (136-145) 12/29/23 22:20 Potassium 3.9 mmol/L (3.5-5.1) 12/29/23 22:20 Chloride 102 mmol/L (98-107) 12/29/23 22:20 Carbon Dioxide 21 mmol/L (22-29) L 12/29/23 22:20 Anion Gap 19.9 (5-19) H 12/29/23 22:20 BUN 27 mg/dL (6-20) H 12/29/23 22:20 Creatinine 1.0 mg/dL (0.7-1.2) 12/29/23 22:20 GFR Calculation 87.7 mL/min (90-130) L 12/29/23 22:20 Glucose 89 mg/dL (65-115) 12/29/23 22:20 Calculated Osmolality 293 mOsm/kg (285-295) 12/29/23 22:20 Calcium 8.6 mg/dL (8.5-10.5) 12/29/23 22:20 Total Bilirubin 0.7 mg/dL (0.15-1.2) 12/29/23 20:37 AST 34 U/L (0-40) 12/29/23 20:37 ALT 20 U/L (0-41) 12/29/23 20:37 Alkaline Phosphatase 92 U/L (40-130) 12/29/23 20:37 Total Protein 9.2 g/dL (6.6-8.7) H 12/29/23 20:37 Albumin 5.7 g/dL (3.5-5.2) H 12/29/23 20:37 Globulin 3.5 g/dL (1.3-4.6) 12/29/23 20:37 Lipase 14 U/L (13-60) 12/29/23 20:37 Salicylates < 0.3 mg/dL (3-10) L 12/29/23 20:37 Acetaminophen < 5.0 ug/mL (10-30) L 12/29/23 20:37 Ethyl Alcohol < 10 mg/dL (0-10) 12/29/23 20:37 All radiology interpretation(s) finalized by discharge Discharge Plan Discharge Patient Disposition: Admitted As Inpatient Admit Provider: Bj Hillamn Clinical Impression: Suicidal ideation Condition: Stable Coding Level of Care Code ED Accounting System Expert for Radha Arora
--- NOTE | 2023-12-29 20:38 | PC.NURSE ---
96 HH Pt served with copy of 96 Hour Hold by this RN and security, pt primary RN in room. Pt calm and cooperative. Pt stated that he has been placed under a 96 HH in the past and had no questions at this time regarding the process.
[2023-12-29 20:43] LABS: Basophils % 0.3 %; Eosinophils % 0.1 %; Hematocrit 49.8 % (37-53); Lymphocytes % 15.5 %; Mean Corpuscular HGB Conc 36.1 g/dL (30-55); Mean Corpuscular Hemoglobin 31.8 pg (27-33); Mean Platelet Volume 9.5 fL (7.4-10.4); Monocytes # 0.8 10^3/uL (0.2-0.9); Monocytes % 5.8 %; Neutrophils # 10.19 10^3/uL (1.8-7.7); Neutrophils % 78.1 %; Nucleated Red Blood Cells % 0 %; Platelet Count 299 10^3/cmm (157-399); Red Blood Count 5.66 10^6/uL (3.85-5.65); Red Cell Distribution Width 12.3 % (12.1-15.1); White Blood Count 13.06 10^3/uL (3.29-11.43)
--- NOTE | 2023-12-29 20:44 | CTR_ITS ---
PROCEDURE INFORMATION: Exam: CT Abdomen And Pelvis With Contrast Exam date and time: 12/29/2023 9:05 PM Age: 28 years old Clinical indication: Nausea; Additional info: Abd pain TECHNIQUE: Imaging protocol: Computed tomography of the abdomen and pelvis with contrast. Radiation optimization: All CT scans at this facility use at least one of these dose optimization techniques: automated exposure control; mA and/or kV adjustment per patient size (includes targeted exams where dose is matched to clinical indication); or iterative reconstruction. Contrast material: OMNI 350; Contrast volume: 80 ml; Contrast route: INTRAVENOUS (IV); COMPARISON: CR (CHEST, ) 12/29/2023 8:23 PM RADIATION DOSE METRICS: Total DLP (mGy-cm): 311 FINDINGS: Lungs: Lung bases are clear. No pleural effusion. Liver: Normal. No mass. Gallbladder and biliary ducts: Normal. No calcified stones. No ductal dilation. Pancreas: Normal. No ductal dilation. Spleen: Normal. No splenomegaly. Adrenal glands: Normal. No mass. Kidneys and ureters: Normal. No hydronephrosis. Stomach and bowel: Unremarkable. No obstruction. No mucosal thickening. Appendix: No evidence of appendicitis. Intraperitoneal space: Unremarkable. No free air. No significant fluid collection. Vasculature: Unremarkable. No abdominal aortic aneurysm. Lymph nodes: Unremarkable. No enlarged lymph nodes. Urinary bladder: Unremarkable as visualized. Reproductive: Unremarkable as visualized. Bones/joints: Unremarkable. No acute fracture. Soft tissues: Unremarkable. CT/CT abdomen pelvis w con* [id number] IMPRESSION: No acute findings.
[2023-12-29 21:05] LABS: Alanine Aminotransferase 20 U/L (0-41); Albumin Level 5.7 g/dL (3.5-5.2); Alkaline Phosphatase 92 U/L (40-130); Aspartate Amino Transferase 34 U/L (0-40); Blood Urea Nitrogen 30 mg/dL (6-20); Calcium 10.8 mg/dL (8.5-10.5); Carbon Dioxide 19 mmol/L (22-29); Chloride 95 mmol/L (98-107); Creatinine Clr Calc Pharmacy 63.9681; Globulin 3.5 g/dL (1.3-4.6); Glomerular Filtration Rate 64.8 mL/min (90-130); Glucose 90 mg/dL (65-115); Lipase 14 U/L (13-60); Osmolality Calculated 292 mOsm/kg (285-295); Sodium 138 mmol/L (136-145); Total Bilirubin 0.7 mg/dL (0.15-1.2); Total Protein 9.2 g/dL (6.6-8.7)
[2023-12-29] MEDS: iohexol 350 mg/mL 500 mL Btl (per mL) IV (21:05)
[2023-12-29 21:14] LABS: Acetaminophen < 5.0 ug/mL (10-30); Alcohol Level < 10 mg/dL (0-10); Salicylate < 0.3 mg/dL (3-10)
[2023-12-29 21:15] LABS: Anion Gap 27.4 (5-19); Potassium 3.4 mmol/L (3.5-5.1)
[2023-12-29] MEDS: sodium chloride 0.9% 1,000 ML 999 ML IV ×2 (21:21→22:06)
[2023-12-29] MEDS: LORazepam 2 mg/mL INJ 1 mL 1 MG IVP (21:21)
--- NOTE | 2023-12-29 22:22 | PC.NURSE ---
BMP drawn and sent to lab at this time
[2023-12-29 22:54] LABS: Anion Gap 19.9 (5-19); Blood Urea Nitrogen 27 mg/dL (6-20); Calcium 8.6 mg/dL (8.5-10.5); Carbon Dioxide 21 mmol/L (22-29); Chloride 102 mmol/L (98-107); Creatinine Clr Calc Pharmacy 83.1585; Glomerular Filtration Rate 87.7 mL/min (90-130); Glucose 89 mg/dL (65-115); Osmolality Calculated 293 mOsm/kg (285-295); Potassium 3.9 mmol/L (3.5-5.1); Sodium 139 mmol/L (136-145)
[2023-12-29 23:35] VITALS: BP 118/83; PULSE 83; RESP 14; TEMP 36.8; O2SAT 100
[2023-12-30 00:05] LABS: Amphetamines Screen Urine Negative (Negative); Barbiturates Screen Urine Negative (Negative); Benzodiazepines Screen Urine Positive (Negative); Cocaine Screen Urine Negative (Negative); Opiate Screen Urine Negative (Negative); PCP Screen Urine Negative (Negative); THC Screen Urine Positive (Negative)
[2023-12-30 06:00] VITALS: BP 98/59; PULSE 98; RESP 14; O2SAT 98
[2023-12-30] MEDS: duloxetine 60 mg Capsule PO (08:48)
[2023-12-30] MEDS: hyDROXYzine 25 mg Capsule 50 MG PO (08:48)
--- NOTE | 2023-12-30 09:23 | PC.NURSE ---
Addendum entered by Myra Betancourt RN 12/30/23 11:14: PT CONTINUES TO APPEAR ANXIOUS AFTER MEDICATION. PT IS EASILY IRRITABLE AND WITHDRAWN. PT REFUSES TO RATE ANXIETY LEVEL AT THIS TIME. Original Note: THIS PT REQUESTED PRN MEDICATIONS FOR ANXIETY RATING IT A 6/10 ON A 0-10 SCALE WHERE 0 IS NONE AND 10 IS THE WORST POSSIBLE. THIS NURSE ADMINISTERED VISTARIL 50MG PRN PO.
--- NOTE | 2023-12-30 09:35 | PC.NURSE ---
IN BED RESTING, AROUSES TO VOICE. DENIES PAIN. PT OBSERVED TO HAVE A FLAT AND DEPRESSED AFFECT AND IS TEARFUL THROUGHOUT THE ASSESSMENT. PT DOES REPORT HE SLEPT WELL LAST NIGHT. ENDORSES SUICIDAL THOUGHTS AND PT STATES HE TRIED TO HANG MYSELF BUT THE GOVERNMENT TEACHER STOPPED ME. PT STATES HE HAS NO ACTIVE PLAN NOW BUT WISHES I JUST WASN'T ALIVE ANYMORE. RN SPOKE WITH PT IN DEPTH AND ENCOURAGED PT TO FIND REASONS TO LIVE AND THINGS TO LIVE FOR. PT WAS ABLE TO NAME A FEW THINGS BUT THEN BECAME TEARFUL AGAIN. RATES ANXIETY 08/22 AND DEPRESSION 03/24. PT REQUESTS MEDICATIONS TO DECREASE ANXIETY AND MED NURSE TO GIVE WITH AM MEDS. PT IS UNABLE TO VERBALIZE ANY GOAL FOR THE DAY BUT THEN STATES I JUST WANT TO GET THROUGH THE DAY I GUESS.. ALL QUESTIONS WERE ANSWERED AND SUPPORT WAS VOICED. DENIES HI AND AVH AT THIS TIME.
--- NOTE | 2023-12-30 13:50 | P.NPUHP_ITS ---
Providers/Chief Complaint 2 Admitting Physician: Bj Hillman MD Chief Complaint: SI HPI NPU History of Present Illness Sal Rose is a 28 year old male who presented to the emergency department with the following report: Chief Complaint: Psychiatric Symptoms Stated Complaint: SI Time Seen by Provider: 12/29/23 20:15 Source: patient and EMS Mode of arrival: EMS Limitations: no limitations History of Present Illness: 28-year-old male is here with EMS with suicidal ideation. Police was called to patient's house and he had a rope injury and was going to hang himself never did attempt states he does want to kill himself by hanging. EMS has brought him in with his suicide complaints EMS states on the way he started complaining of some abdominal pain he does have a history of alcohol abuse. Had some nausea denies any vomiting. Associated symptoms: Reports depression and suicidal ideation. He was admitted to the neuropsychiatric unit for definitive treatment of those issues. He is known to psychiatric services at [facility] through inpatient and outpatient services. His last inpatient stay was September of this year and an excerpt of that discharge summary is included below for context and the fact that he denies substantive changes. He presents today reporting that he was feeling suicidal related to another conflict with his mother. He reports that they got any serious conflict and he is not sure that she actually is going to allow him to return anytime soon. He had queried whether being dehydrated could have made the medication make him more aggressive. We discussed that people can have dehydration that leads to altered mental status but it would have nothing to do with his psychiatric medications especially at their current doses. He reports that he has been taking his medication and that he has been working. He denied significant issues with his addiction at this moment. He denied understanding but was different about his interaction with his mother except for concerns that maybe he was more aggressive than usual and he is not clear why that happened. We agreed we would review his medications to see if there were any changes that seem appropriate and that I would review his records with his outpatient provider to see if there were any changes that she was contemplating. Per his 10/07/2023 [facility] inpatient psychiatric discharge summary: Discharge Diagnosis (1) SRINATH (generalized anxiety disorder): Status: Acute (2) MDD (major depressive disorder), recurrent episode: Status: Acute (3) Partner relational problem: Status: Acute (4) History of trauma: Status: Acute (5) Depression: Status: Acute (6) Cannabis use disorder: Status: Acute (7) Intentional drug overdose: Status: Acute (8) Suicidal ideation: Status: Acute (9) Alcohol use disorder, severe, dependence: Status: Acute Reason for Visit Reason for Visit: MHE Brief History: History of Present Illness Sal Rose is a 27 year old male who presented to the emergency department with the following report: Chief Complaint: Psychiatric Symptoms Stated Complaint: MHE Time Seen by Provider: 09/16/23 17:28 Source: patient Mode of arrival: ambulatory Limitations: no limitations History of Present Illness: 27-year-old male who states that he is going through a break-up he became upset today he states he took 1 strip of Suboxone and intent to kill himself he does take Suboxone daily he states he just no longer wants to live denies any worsening proving factors. Associated symptoms: Reports depression and suicidal ideation. He was admitted to the neuropsychiatric unit for definitive treatment of those issues. He is known to this video game script writer through past hospitalization in November 2022 and an excerpt of that discharge summary is included for context and the fact that he denies substantive changes since that time. He also reports that this is essentially d?j? vu all over again. He reports that he is having the same issue with the same girl as well as addiction issues. He reports the thing that is changed is that before he was having difficulty with alcohol and he has been able to essentially put the alcohol behind him. However he reports that other drugs of abuse including cannabis and cocaine have been a problem. He reports that he has been doing well as far as his recovery but then he got really upset with this young lady and was almost using 2 spite her but it was clearly just hurting himself which makes him extremely angry when he thinks about her now. He reports that he still lives at home with his mother and that this significant other have been trying to stay there/move in but she has not been coming through on the things that they agreed upon. He reports that she misses work and is not reliable that way. He reports that he has been working for about 7 months at a new place since around the time he got out last year. He reports that his recent use has proved problematic. We discussed the possibility of either restarting previous medication or starting an alternative medication including the risks, benefits and alternatives and he understood and agreed to proceed as is documented in this note. Per his 11/13/2022 [facility] inpatient psychiatric discharge summary: Discharge Diagnosis (1) Alcohol use disorder, severe, dependence: Status: Acute (2) Partner relational problem: Status: Acute (3) History of trauma: Status: Acute (4) Depression: Status: Acute Reason for Visit Reason for Visit: SI Brief History: History of Present Illness Sal Rose is a 26 year old male who presented to the emergency department with the following report: Stated Complaint: SI Time Seen by Provider: 11/08/22 23:43 Source: patient Mode of arrival: ambulatory Limitations: no limitations History of Present Illness: 26-year-old male who states that he has lost everything recently has been under a lot of stress and just feeling worthless he has been having active suicidal thoughts he states he has a plan but he will not tell me. When he first got out of the room he is trying to show his finger in the electric sockets he states he went electrocute himself. He has been drinking alcohol tonight former drug user but states he is clean currently denies any worsening proving factors. Associated symptoms: Reports depression and suicidal ideation. He was admitted to the neuropsychiatric unit for definitive treatment of those issues. The patient presents today reporting that he has no previous psychiatric hospitalizations. He endorses some outpatient psychiatric services, and he reports earlier this month he had inpatient detox/substance abuse treatment. He reports some anti-anxiety medications. He reports that he was living with his girlfriend but was moving out, and his brother picked him up and they were going down the road and noticed a cooler that was all taped up, and they got out to move it off the road and noticed a stench and opened it and there was a body smell and bones, and his brother and girlfriend contacted the police. Afterwards, he got brought here because he was still really out of sorts. He is on a 96-hour hold, which extends to November 17, and he expressed concerns because he has a job that is starting Thursday morning. We discussed that he could be here for the 96 hours but could possibly be discharged earlier depending on how things go, but that he would at least be here for a day. He endorses that this situation was upsetting but there was also alcohol involved. He reports that he completed the thirty-day program he was in recently and it went well, and he had 55 days of sobriety. He reports that last night was the first time he drank again since treatment, after this incident, and it impacted him more because he felt upset about messing up his sobriety. The patient denies cigarette use or vaping. He reports that he started drinking alcohol too much around 14 to 16 years old. He reports that he was in the and had some periods of sobriety then. He endorses some cannabis use, at least once a week. He reports some experimentation with cocaine and methamphetamine the beginning of 2019. He denies other illicit drug use. He reports two drug rehabilitation programs, this recent one and one in 2017. He endorses one DUI, before he went into treatment recently. He denies any other drug related charges. He reports that growing up his mother had mental health issues and he had to figure things out for himself, and it was challenging. He reports some sleep issues. He reports some suicidal thoughts and passive wish. He denies self-injurious behavior. He endorses that he has had some anxiety, with sweaty palms and shortness of breath, and worrying. He endorses paranoia. He denies auditory or visual hallucinations. He reports some nightmares and flashbacks from seeing people that have committed suicide. PSYCHIATRIC HISTORY: As above. SUBSTANCE ABUSE HISTORY: As above. FAMILY HISTORY: The patient reports mental health issues on his mother?s side of the family. He reports addiction issues on both sides of the family. He endorses a suicide completion of a cousin on his mother?s side. DEVELOPMENTAL HISTORY: The patient reports that his mother said he was born not crying. He learned to walk and talk and met developmental milestones on time. The patient endorses speech therapy and learning support. PSYCHOSOCIAL HISTORY: The patient reports that his mother and father were together when he was born and split up later. He reports that he has two younger brothers from that union. He denies any other siblings. He describes his childhood as good at first and then he had to grow up fast. He denies emotional, physical, or sexual abuse, but there was neglect. He endorses some CYS involvement. 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 He endorses graduating from high school. He denies additional training. He endorses being heterosexual, with the longest relationship being his current relationship of about two years. He denies being and has no children. He was in the from 2013 to 2018, he was in [employer] and [employer]. The longest job he had was in the . He endorses being Anglican. He currently lives at his mother?s apartment. LEGAL HISTORY: He had one night in half-way. MEDICAL HISTORY: He reports having high blood pressure. Hospital Course Patient slowly acclimated to the individual, group and milieu therapies provided. He presented with psychosocial stressors of significant partner relational problems, not being on his medications, not being sure where he was going to live and having relapsed on alcohol. Eventually his withdrawal resolved. We added thiamine to his regimen. We restarted Invega to treat his baseline paranoia. Ultimately he arrived on a 96-hour hold. We monitored him for safety and ensure there was no lingering suicidality. He improved significantly once he was sober and had several days on medications. He worked with the social work team to come up with appropriate follow-up and discharge appointments and his mother was involved with his care as a support. He was able to contract for safety outside of the hospital prior to discharge. During the hospitalization, he had routine laboratory studies which were within normal limits except for a few outliers. Additionally he had general medical evaluation which was also within normal limits and revealed no new acute processes. At the time of discharge, he denied any lethality and he was absent psychosis. Mood and anxiety were well managed and he endorsed a plan to avoid all drugs of abuse, and follow-up with the recommended post hospital services. He was evaluated and deemed to be absent credible lethality and had received the maximum benefit from an inpatient hospitalization, so was discharged. Hospital Course During the hospitalization, the patient had routine laboratory studies which were within normal limits except for a few outliers. Additionally, there was a general medical evaluation which was also within normal limits and revealed no new acute processes. At the time of discharge, lethality was denied and mood and anxiety were better managed. The patient endorsed a plan to avoid all drugs of abuse and follow up with the aftercare recommendations of the treatment team. The patient was evaluated and deemed to be absent credible lethality and had achieved the maximum benefit from an inpatient hospitalization, and so was discharged. The patient was started on Cymbalta to target anxiety and depression with reports of no side effects and improvement in mood within 1 to 2 days. He had expressed interest in receiving help for alcohol use and had previously reported a good response to Vivitrol and this was given prior to the discharge with no side effects. There was no clear evidence of psychosis during his hospital stay and no antipsychotic treatment was needed during his hospital stay. Meds NPU Home Medications Medication Instructions Recorded Confirmed Last Taken Type duloxetine 60 mg capsule,delayed 60 mg PO .morning #30 caps 12/25/23 12/30/23 Unknown Rx release (Cymbalta) quetiapine 25 mg tablet (Seroquel) 25 mg PO BID PRN anxiety/agitation 12/25/23 12/30/23 Unknown Rx #60 tabs Allergies Allergy/AdvReac Type Severity Reaction Status Date / Time No Known Allergies Allergy Verified 12/29/23 20:24 PFSH NPU 2 PFSH: Medical History Alcohol use disorder, severe, dependence Nicotine dependence, cigarettes, uncomplicated Cannabis dependence, episodic use Chronic post-traumatic stress disorder (PTSD) after combat Major depressive disorder, recurrent severe without psychotic features Family History (Updated 11/20/22 @ 14:35 by Scott Hirsch) Other Psychiatric care Social History Alcohol intake: current Substance/Drug Use: former Mental Status Exam 2 MSE Comments: This is a slender dark skinned male, in hospital scrubs, with limited grooming and eye contact. There were no abnormal movements except for psychomotor retardation. He was cooperative with exam in mild to moderate distress. Speech was decreased rate and volume with limited prosody. Mood described as depressed and distraught; affect congruent and restricted. Thought process was linear and organized. Thought content: patient endorsed suicidal but denied homicidal ideation. There were no delusions reported or noted, patient denied any auditory or visual hallucinations. Attention, concentration, and memory appeared grossly intact but none were formally tested. He was alert and oriented x3. His insight and judgment were limited and impulse control was impaired Vitals/I&O/Wt Last Vital Signs Temp 98.2 F 12/29/23 23:35 Pulse 98 07/17/24 06:00 Resp 14 12/30/23 06:00 BP 98/59 12/30/23 06:00 Pulse Ox 98 12/30/23 06:00 O2 Del Method Room Air 12/30/23 06:00 12/29/23 12/30/23 12/30/23 22:59 06:59 14:59 Intake Total 1999 Balance 1999 Weight last 48 hrs Weight 54.431 kg Data NPU 12/29/23 20:37 12/29/23 22:20 A&P Assessment and plan (1) Partner relational problem: (2) History of trauma: (3) Depression: (4) Cannabis use disorder: (5) Intentional drug overdose: (6) Suicidal ideation: (7) Alcohol use disorder, severe, dependence: Plan This is a 26-year-old dark skinned male, who presents on once again on a 96-hour hold with a history of depression and addiction with recent conflict with his mother and possibly not having a place to return to but continuing to report that he has been taking his medication and working but endorsing not feeling safe. 1. Continue current medication. 2. Encourage individual, group, and milieu therapy. 3. Continue q-15-minute checks for safety. 4. Encourage sober living treatment after discharge at the highest level of care to which he willing to commit. 5. We will get collateral information. Involuntary Hold Information 2 96 Hour Hold: 96 Hour Involuntary Admission: Yes 96 Hour Hold Ending Date: 01/04/24 96 Hour Hold Ending Time: 20:17 Attestations NPU 2 Medical Necessity Statement*: Inpatient hospitalization is medically necessary and the clinically appropriate intervention, at this time. We will monitor medications and make changes as indicated. Patient will be in the hospital for over two midnights. Likely length of stay is three to five days. Coding Level of Care Code Acute Code for Chg Fwd Diagnoses Partner relational problem Z63.0 History of trauma Z87.828 Depression F32.A Cannabis use disorder F12.90 Intentional drug overdose T50.902A Suicidal ideation R45.851 Alcohol use disorder, severe, dependence F10.20
[2023-12-30 14:00] VITALS: BP 107/71; PULSE 95; RESP 13; TEMP 36.9; O2SAT 98
[2023-12-30] MEDS: quetiapine 25 mg Tablet PO (17:35)
[2023-12-30 19:42] VITALS: BP 104/67; PULSE 95; RESP 19; TEMP 36.9; O2SAT 95
[2023-12-31] MEDS: trazodone 50 mg Tablet PO (00:19)
[2023-12-31] MEDS: hyDROXYzine 25 mg Capsule 50 MG PO (00:19)
[2023-12-31] MEDS: OLANZapine 5 mg ODT PO ×2 (01:13→18:03)
[2023-12-31] MEDS: diphenhydrAMINE 50 mg/mL SDV 1mL IM (01:39)
[2023-12-31] MEDS: haloperidol inj 5 mg/mL INJ 1 mL IM (01:40)
[2023-12-31] MEDS: LORazepam 2 mg/mL INJ 1 mL IM (01:40)
--- NOTE | 2023-12-31 01:52 | PC.NURSE ---
Patient came to nurses station angry and agitated. He began yelling and acting out violently. He sat on the bench outside the nurses station and struck the wall with his right fist. I spoke to him in an attempt to deescalate his behavior, offering him an injection (B-52) to settle his aggression. Security was at stand by if the situation got further out of control. The patient was agreeable to receiving injections, stating I don't want to loose my shit . Benadryl 50mg IM was given in his left deltoid, Ativan 2mg IM and Haldol 5mg IM was administered to his right deltoid. Patient returned to his room laying in his bed. Upon reassessment patient was markedly calmer, resting in his bed with eyes closed. No further S/S of acute distress was noted. Patient appeared to be resting calmly and comfortably.
[2023-12-31 06:00] VITALS: BP 102/66; PULSE 90; RESP 19; TEMP 36.7; O2SAT 100
[2023-12-31] MEDS: duloxetine 60 mg Capsule PO (09:03)
[2023-12-31 14:00] VITALS: BP 117/75; PULSE 98; RESP 17; TEMP 36.6; O2SAT 100
--- NOTE | 2023-12-31 14:35 | P.NPUPN_ITS ---
Subjective NPU 2 Subjective: Patient presented today reporting that he is feeling anxious about losing his job. We discussed that he continues to look fairly despondent and despair and that we recommend increasing cymbalta. He was very upset with his mother and the difficulties they have. Endorsed being homeless but being unsure if he can focus on much more than keeping his employment. We discussed him focusing on managing his frustration and meeting tomorrow to consider discharge possibilities. He denied side effects to his medications. Mental Status Exam 2 MSE Comments: This is a slender dark skinned male, in hospital scrubs, with limited grooming and eye contact. There were no abnormal movements except for psychomotor retardation. He was cooperative with exam in mild to moderate distress. Speech was decreased rate and volume with limited prosody. Mood described as I can not lose my job; affect congruent and restricted. Thought process was linear and organized. Thought content: patient endorsed suicidal but denied homicidal ideation. There were no delusions reported or noted, patient denied any auditory or visual hallucinations. Attention, concentration, and memory appeared grossly intact but none were formally tested. He was alert and oriented x3. His insight and judgment were limited and impulse control was impaired Vitals/I&O/Wt Last Vital Signs Temp 98.0 F 12/31/23 06:00 Pulse 90 12/31/23 06:00 Resp 19 H 12/31/23 06:00 BP 102/66 12/31/23 06:00 Pulse Ox 100 12/31/23 06:00 O2 Del Method Room Air 12/31/23 06:00 Weight last 48 hrs Weight 54.431 kg Data NPU 12/29/23 20:37 12/29/23 22:20 A&P Assessment and plan (1) Partner relational problem: (2) History of trauma: (3) Depression: (4) Cannabis use disorder: (5) Intentional drug overdose: (6) Suicidal ideation: (7) Alcohol use disorder, severe, dependence: Plan This is a 26-year-old dark skinned male, who presents on once again on a 96-hour hold with a history of depression and addiction with recent conflict with his mother and possibly not having a place to return to but continuing to report that he has been taking his medication and working but endorsing not feeling safe. 1. Continue current medication. 2. Encourage individual, group, and milieu therapy. 3. Continue q-15-minute checks for safety. 4. Encourage sober living treatment after discharge at the highest level of care to which he willing to commit. 5. We will get collateral information as he is now reporting greater concerns about his job than his safety. Involuntary Hold Information 2 96 Hour Hold: 96 Hour Involuntary Admission: Yes 96 Hour Hold Ending Date: 01/04/24 96 Hour Hold Ending Time: 20:17 Attestations NPU 2 Medical Necessity Statement*: Inpatient hospitalization is medically necessary and the clinically appropriate intervention, at this time. We will monitor medications and make changes as indicated. Likely length of stay is 1-4 days. Coding Level of Care Code Acute Code for Chg Fwd Diagnoses Partner relational problem Z63.0 History of trauma Z87.828 Depression F32.A Cannabis use disorder F12.90 Intentional drug overdose T50.902A Suicidal ideation R45.851 Alcohol use disorder, severe, dependence F10.20
[2023-12-31] MEDS: quetiapine 25 mg Tablet PO (18:53)
[2023-12-31] MEDS: haloperidol 5 mg Tablet PO (18:53)
[2023-12-31 20:51] VITALS: BP 99/67; PULSE 86; RESP 16; TEMP 36.7; O2SAT 92
[2024-01-01 06:00] VITALS: BP 111/67; PULSE 97; RESP 15; TEMP 36.8; O2SAT 95
--- NOTE | 2024-01-01 08:26 | PC.NURSE ---
During assessment, patient states that he is feeling better than he has over the past couple of days, less anger. patient cooperative and calm
--- NOTE | 2024-01-01 09:32 | W.PM.NPUDCS ---
Diagnoses at Discharge Discharge Diagnosis (1) Partner relational problem: Status: Resolved (2) History of trauma: Status: Resolved (3) Depression: Status: Resolved (4) Cannabis use disorder: Status: Inactive (5) Intentional drug overdose: Status: Resolved (6) Suicidal ideation: Status: Resolved (7) Alcohol use disorder, severe, dependence: Status: Chronic Reason for Visit Reason for Visit: SI Involuntary Hold Information 96 Hour Hold: 96 Hour Involuntary Admission: Yes 96 Hour Hold Ending Date: 01/04/24 96 Hour Hold Ending Time: 20:17 Mental Status Exam MSE Comments: This is a slender dark skinned male, in hospital scrubs, with limited grooming and eye contact. There were no abnormal movements except for psychomotor retardation. He was cooperative with exam in mild to moderate distress. Speech was decreased rate and volume with limited prosody. Mood described as I can not lose my job; affect congruent and restricted. Thought process was linear and organized. Thought content: patient endorsed suicidal but denied homicidal ideation. There were no delusions reported or noted, patient denied any auditory or visual hallucinations. Attention, concentration, and memory appeared grossly intact but none were formally tested. He was alert and oriented x3. His insight and judgment were limited and impulse control was impaired Discharge Data Studies Completed and Pending: Completed Studies During Hospitalization Category Date Time Status CT abdomen pelvis w con* [id number] Stat Cat Scan 12/29/23 20:44 Completed XR chest 1V swapna ble [id number] Stat Exams 12/29/23 20:17 Completed Radiology Impressions Chest X-Ray 12/29/23 20:17 IMPRESSION: No acute findings. Abdomen/Pelvis CT 12/29/23 20:44 IMPRESSION: No acute findings. Laboratory Results WBC 13.06 10^3/uL (3. 29-11.43) H 12/29/23 20:37 RBC 5.66 10^6/uL (3.8 5-5.65) H 12/29/23 20:37 Hgb 18.00 g/dL (11.27 -16.99) H 12/29/23 20:37 Hct 49.8 % (37-53) 12/29/23 20:37 MCV 88.0 fl (82-101) 12/29/23 20:37 MCH 31.8 pg (27-33) 12/29/23 20:37 MCHC 36.1 g/dL (30-55) 12/29/23 20:37 RDW 12.3 % (12.1-15.1 ) 12/29/23 20:37 Plt Count 299 10^3/cmm (157 -399) 12/29/23 20:37 MPV 9.5 fL (7.4-10.4) 12/29/23 20:37 Neut % (Auto) 78.1 % 12/29/23 20:37 Lymph % (Auto) 15.5 % 12/29/23 20:37 [place]win % (Auto) 5.8 % 12/29/23 20:37 Eos % (Auto) 0.1 % 12/29/23 20:37 Baso % (Auto) 0.3 % 12/29/23 20:37 Neut # (Auto) 10.19 10^3/uL (1. 8-7.7) H 12/29/23 20:37 Lymph # (Auto) 2.0 10^3/uL (0.8- 4.8) 12/29/23 20:37 Gladwin # (Auto) 0.8 10^3/uL (0.2- 0.9) 12/29/23 20:37 Eos # (Auto) 0.0 10^3/uL (0.0- 0.8) 12/29/23 20:37 Baso # (Auto) 0.0 10^3/uL (0.0- 0.1) 12/29/23 20:37 Nucleated RBC % (a uto) 0 % 12/29/23 20:37 Nucleated RBCs # 0.0 /100WBC 12/29/23 20:37 Sodium 139 mmol/L (136-1 45) 12/29/23 22:20 Potassium 3.9 mmol/L (3.5-5 .1) 12/29/23 22:20 Chloride 102 mmol/L (98-10 7) 12/29/23 22:20 Carbon Dioxide 21 mmol/L (22-29) L 12/29/23 22:20 Anion Gap 19.9 (5-19) H 12/29/23 22:20 BUN 27 mg/dL (6-20) H 12/29/23 22:20 Creatinine 1.0 mg/dL (0.7-1. 2) 12/29/23 22:20 GFR Calculation 87.7 mL/min (90-1 30) L 12/29/23 22:20 Glucose 89 mg/dL (65-115) 12/29/23 22:20 Calculated Osmolal ity 293 mOsm/kg (285- 295) 12/29/23 22:20 Calcium 8.6 mg/dL (8.5-10 .5) 12/29/23 22:20 Total Bilirubin 0.7 mg/dL (0.15-1 .2) 12/29/23 20:37 AST 34 U/L (0-40) 12/29/23 20:37 ALT 20 U/L (0-41) 12/29/23 20:37 Alkaline Phosphata se 92 U/L (40-130) 12/29/23 20:37 Total Protein 9.2 g/dL (6.6-8.7 ) H 12/29/23 20:37 Albumin 5.7 g/dL (3.5-5.2 ) H 12/29/23 20:37 Globulin 3.5 g/dL (1.3-4.6 ) 12/29/23 20:37 Lipase 14 U/L (13-60) 12/29/23 20:37 Salicylates < 0.3 mg/dL (3-10 ) L 12/29/23 20:37 Urine Opiates Scre en Negative ng/mL (N egative) 12/29/23 23:11 Acetaminophen < 5.0 ug/mL (10-3 0) L 12/29/23 20:37 Ur Barbiturates Sc reen Negative ng/mL (N egative) 12/29/23 23:11 Ur Phencyclidine S crn Negative ng/mL (N egative) 12/29/23 23:11 Ur Amphetamines Sc reen Negative ng/mL (N egative) 12/29/23 23:11 U Benzodiazepines Scrn Positive ng/mL (N egative) H 12/29/23 23:11 Urine Cocaine Scre en Negative ng/mL (N egative) 12/29/23 23:11 U Marijuana (THC) Screen Positive ng/mL (N egative) H 12/29/23 23:11 Ethyl Alcohol < 10 mg/dL (0-10) 12/29/23 20:37 Vitals: Last Vital Signs Temp 98.2 F 01/01/24 06:00 Pulse 97 01/01/24 06:00 Resp 15 01/01/24 06:00 BP 111/67 01/01/24 06:00 Pulse Ox 95 01/01/24 06:00 O2 Del Method Room Air 01/01/24 06:00 Discharge Plan Discharge Condition: Stable Prescriptions: New trazodone 50 mg Tablet 50 mg PO BEDTIME PRN (Reason: Sleep) 30 Days Qty: 30 1RF hydroxyzine pamoate 25 mg Capsule 50 mg PO Q6H PRN (Reason: Anxiety) 30 Days Qty: 120 1RF Continued quetiapine [Seroquel] 25 mg tablet 25 mg PO BID PRN (Reason: anxiety/agitation) Qty: 60 6RF Rx Instructions: May take one tablet twice per day as needed for anxiety/agitation duloxetine [Cymbalta] 60 mg capsule,delayed release(DR/EC) 60 mg PO .morning Qty: 30 6RF Rx Instructions: Take one capsule every morning Discharge Orders: Discharge Order (Routine); Ordered 01/01/24 Ordered By: Bj Hillman Discharge Diet: Regular Discharge Activity: Resume usual activity Patient Instructions: Opioid Safety Discharge Attestations NPU Time Spent in Discharge Care*: less than 30 min Specific Discharge Activities: Specific discharge activities: educating patient, discussing with rn field case manager/social workers/dc planners, documenting/other paperwork and evaluating patient/reviewing data Coding Level of Care Code Acute Code for Chg Fwd Diagnoses Partner relational problem Z63.0 History of trauma Z87.828 Depression F32.A Cannabis use disorder F12.90 Intentional drug overdose T50.902A Suicidal ideation R45.851 Alcohol use disorder, severe, dependence F10.20
[2024-01-01] MEDS: duloxetine 60 mg Capsule PO (09:45)
[2024-01-01 10:48] VITALS: BP 111/67; PULSE 97; RESP 15; TEMP 36.8; O2SAT 95
== END 2024-01-01 12:12 | disposition home or self-care (01) | DRG 885 ==
LOC: ER 20:41 → NP 22:25
PROVIDERS: Admitting Provider Psychiatry & Neurology Psychiatry; Emergency Provider Emergency Medicine; Visit Provider Psychiatry & Neurology Psychiatry
DX: F33.9 Major depressive disorder, recurrent, unspecified (principal); R45.851 Suicidal ideations; Z63.0 Problems in relationship with spouse or partner; F12.20 Cannabis dependence, uncomplicated; F10.20 Alcohol dependence, uncomplicated; F43.12 Post-traumatic stress disorder, chronic
CPT/HCPCS: 71045; 74177; 80048; 80053; 80306; 80307; 83690; 85025; 96361; 96372; 96374; 97150; 97165; 99285; J1200; J1630; J2060; J7030; Q9967